=== PATIENT | male | born 1980 | race African-American/Black ===

== ENCOUNTER 2018-11-14 08:51 | Emergency (ER) | payer BC ==
[2018-11-14] MEDS ORDERED: Ondansetron PF 4 MG/2 ML Vial ONE (09:20)
[2018-11-14 09:27] LABS: Bilirubin Negative (Negative); Blood, Urine Small (Negative); Clarity Clear (Clear); Glucose, Urine (Dipstick) 500 mg/dL (Negative); Leukocyte Negative (Negative); Nitrite Negative (Negative); Protein, Urine (Dipstick) 100 mg/dL (Neg-Trace); Urobilinogen 0.2 mg/dL (0.2-1.0)
--- NOTE | 2018-11-14 09:29 | RAD ---
CHEST PA AND LATERAL: History: 38-year-old male with history of cough. FINDINGS: The heart size is normal. The lungs are clear. No pneumonia, edema, or pleural effusion. IMPRESSION: No acute intrathoracic disease. No evidence for pneumonia. POS: [facility]
[2018-11-14 09:37] LABS: Bacteria/HPF Rare-Few HPF (None Seen); Hyaline Casts/LPF NONE SEEN LPF (0-3 Hyaline); Squamous Epithelial 0-3 HPF (0-3)
[2018-11-14 09:38] LABS: Transitional Epithelial 0-3 HPF (0-3)
[2018-11-14 09:45] LABS: #Basophils 0.1 thou/uL (0.0-0.2); #Eosinphils 0.1 thou/uL (0.0-0.7); #Lymphocytes 1.4 thou/uL (1.20-3.40); #Monocytes 0.4 thou/uL (0.11-0.59); #Neutrophils 5.7 thou/uL (1.40-6.50); %Eosinophils 1.7 % (0.0-10.0); %Lymphocytes 17.9 % (21.0-51.0); %Neutrophils 74.4 % (42.0-75.0); Hemoglobin 12.5 g/dL (14.0-18.0); Mean Corpuscular Hemoglobin 26.9 pg (27.0-31.0); Mean Corpuscular Volume 81.5 fL (78.0-98.0); Platelet Count 232 thou/uL (130-400); RBC Distribution Width 11.9 % (11.5-14.5); Red Blood Cell (RBC) Count 4.66 mill/uL (4.70-6.10); White Blood Cell (WBC) Count 7.6 thou/uL (4.8-10.8)
[2018-11-14 09:54] LABS: ALT (SGPT) 15 U/L (8-55); AST (SGOT) 17 U/L (5-34); Albumin 3.1 g/dL (3.5-5.0); Alkaline Phosphatase 147 U/L (40-150); Anion Gap 15 mmol/L (10-20); BUN (Urea Nitrogen) 7 mg/dL (8.9-20.6); Bilirubin, Total 0.3 mg/dL (0.2-1.2); Calc. Creatinine Clearance 0 mL/min (70-130); Calcium 8.9 mg/dL (7.8-10.44); Carbon Dioxide 28 mmol/L (22-29); Chloride 95 mmol/L (98-107); Estimated GFR-MDRD 81; Globulin 5.1 g/dL (2.4-3.5); Lipase 28 U/L (8-78); Potassium 3.9 mmol/L (3.5-5.1); Protein, Total 8.2 g/dL (6.0-8.3); Sodium 134 mmol/L (136-145)
[2018-11-14 09:55] LABS: Glucose 567 mg/dL (70-105)
[2018-11-14] MEDS ORDERED: Insulin Regular 300 UNITS/3 ML VIAL ONE (09:59)
== END 2018-11-14 12:10 | disposition home or self-care (01) ==
LOC: SCSER 08:51
DX: E11.65 Type 2 diabetes mellitus with hyperglycemia (principal); R05 Cough; I10 Essential (primary) hypertension; E66.9 Obesity, unspecified; Z79.4 Long term (current) use of insulin; E78.5 Hyperlipidemia, unspecified; Z87.891 Personal history of nicotine dependence; Z79.899 Other long term (current) drug therapy
CPT/HCPCS: 36416; 71046; 80053; 81003; 81015; 82010; 83605; 83690; 85025; 87086; 96361; 96374; 96375; J1815; J2405

== ENCOUNTER 2020-03-31 12:07 | Outpatient (CLI) | payer BC ==
--- NOTE | 2020-03-31 15:17 | RAD ---
CHEST 2 VIEWS: HISTORY: Pre-dialysis workup. COMPARISON: Radiograph of 09/12/2019. FINDINGS: Mild increased interstitial markings throughout the lungs suggestive of pulmonary edema. Heart size is enlarged. No pneumothorax. No significant effusion. IMPRESSION: Moderate volume overload. POS: [facility]
--- NOTE | 2020-03-31 15:17 | ULT ---
PREDIALYSIS ACCESS DUPLEX ULTRASOUND EXAMINATION: 03/31/20 INDICATION: Dialysis access planning. FINDINGS: RIGHT UPPER EXTREMITY BRACHIAL ARTERY: 4.8 mm RADIAL ARTERY: 2.2 mm ULNAR ARTERY: 2.4 mm CEPHALIC VEIN Proximal Arm: 3.6 mm Mid Arm: 2.5 mm Distal Arm: 3.3 mm Antecubital Fossa: 3.2 mm Proximal Forearm: 2.8 mm Mid Forearm: 3.7 mm Distal Forearm: 2.8 mm BASILIC VEIN Proximal Arm: 4.5 mm Mid Arm: 3.9 mm Distal Arm: 4.7 mm Antecubital Fossa: 4.8 mm Proximal Forearm: 1.8 mm Mid Forearm: 2.0 mm Distal Forearm: 1.9 mm LEFT UPPER EXTREMITY BRACHIAL ARTERY: 5.4 mm RADIAL ARTERY: 2.5 mm ULNAR ARTERY: 2.7 mm CEPHALIC VEIN Proximal Arm: 2.0 mm Mid Arm: 2.1 mm Distal Arm: 2.0 mm Antecubital Fossa: Only partial compression seen involving the left cephalic vein in the region of t he antecubital fossa suspicious for partial occlusion. Proximal Forearm: 4.1 mm Mid Forearm: 2.0 mm Distal Forearm: 2.6 mm BASILIC VEIN Proximal Arm: 6.2 mm Mid Arm: 5.0 mm Distal Arm: 4.5 mm Antecubital Fossa: 4.0 mm Proximal Forearm: 1.1 mm Mid Forearm: 1.1 mm Distal Forearm: 1.5 mm IMPRESSION: 1. Partial compression suspicious for a partial superficial venous thrombus involving the left c ephalic vein at the antecubital fossa. The remaining venous segments appear patent. 2. Dialysis duplex examination measurements as above. POS: [facility]
== END 2020-03-31 12:08 | disposition home or self-care (01) ==
LOC: SCSULT 12:07
PROVIDERS: ATTEND Internal Medicine Nephrology
DX: I12.0 Hypertensive chronic kidney disease with stage 5 chronic kidney disease or end stage renal disease (principal); N18.5 Chronic kidney disease, stage 5; E87.70 Fluid overload, unspecified
CPT/HCPCS: 36415; 71046; 80053; 85025; 86706; 86803; 87340; 87517; 93970; G0365

== ENCOUNTER 2020-04-11 08:57 | Inpatient (IN) | payer BC, OTHER ==
[2020-04-11] MEDS ORDERED: Ondansetron PF 4 MG/2 ML Vial ONE (09:37)
--- NOTE | 2020-04-11 09:47 | RAD ---
EXAM: CHEST ONE VIEW HISTORY: Cough and dyspnea COMPARISON: 11/10/2019 FINDINGS: Cardiac silhouette remains in large. Pulmonary vasculature is within normal limits. The lungs are coty ar. Osseous structures have a normal appearance. No interval change from prior study IMPRESSION: 1. No acute cardiopulmonary process. 2. No pulmonary opacities are visualized. However, chest radiographs exhibit low sensitivity for subt le groundglass opacities that can be seen in viral infections. 3. Cardiomegaly.
[2020-04-11 09:50] LABS: #Eosinphils 0.1 thou/uL (0.0-0.7); #Lymphocytes 0.8 thou/uL (1.20-3.40); #Monocytes 0.5 thou/uL (0.11-0.59); #Neutrophils 6.7 thou/uL (1.40-6.50); %Basophils 0.6 % (0.0-1.0); %Eosinophils 1.2 % (0.0-10.0); %Lymphocytes 9.6 % (21.0-51.0); %Neutrophils 82.6 % (42.0-75.0); Mean Corpuscular HGB CONC 32.2 g/dL (32.0-36.0); Mean Corpuscular Hemoglobin 30.3 pg (27.0-31.0); Mean Corpuscular Volume 93.8 fL (78.0-98.0); Platelet Count 154 thou/uL (130-400); RBC Distribution Width 15.2 % (11.5-14.5); Red Blood Cell (RBC) Count 2.98 mill/uL (4.70-6.10); White Blood Cell (WBC) Count 8.1 thou/uL (4.8-10.8)
[2020-04-11 12:11] LABS: ALT (SGPT) 14 U/L (8-55); AST (SGOT) 35 U/L (5-34); Albumin 3.2 g/dL (3.5-5.0); Alkaline Phosphatase 114 U/L (40-110); Anion Gap 25 mmol/L (10-20); BUN (Urea Nitrogen) 66 mg/dL (8.9-20.6); Bilirubin, Total 0.4 mg/dL (0.2-1.2); Calc. Creatinine Clearance 0 mL/min (70-130); Calcium 6.3 mg/dL (7.8-10.44); Carbon Dioxide 14 mmol/L (22-29); Chloride 105 mmol/L (98-107); Estimated GFR-MDRD 11; Globulin 5.3 g/dL (2.4-3.5); Glucose 75 mg/dL (70-105); Potassium 4.8 mmol/L (3.5-5.1); Protein, Total 8.5 g/dL (6.0-8.3); Sodium 139 mmol/L (136-145)
[2020-04-11] MEDS ORDERED: cloNIDine 0.1 MG TAB ONE (13:51)
[2020-04-11] MEDS ORDERED: Promethazine HCl 25 MG/ML VIAL ONE (13:51)
--- NOTE | 2020-04-11 15:25 | PDOC.FPRHP ---
- History of Present Illness Chief Complaint: nausea/vomiting History of Present Illness: Mr. Vogel is a 40 yo m w a pmhx sig for htn, IDDM, and ESRD He has had n/v for two days, emesis tntc, reports clear/bile. denies hematemesis , abdominal pain, fever, or known exposures. He has been seeing Dr. Alan in the outpt setting for CKD, moving towards beginning dialysis. He is unsure what the cause of his CKD is and reports his DM and HTN has been well controlled. He reports he has been dx with HF in the past but is unsure what type/ or EF. recent echo at [facility]. sleeps elevated 2/2 to sob and cough reports LE swelling is at baseline. before 2 days ago he was doing well and had no concerns. ED Course: CBC, CMP, Mg, COVID swab, trop, cxr, ekg Clonidine, promethazine, 1L, zofran - Allergies/Adverse Reactions Allergies Allergy/AdvReac Type Severity Reaction Status Date / Time sulfamethoxazole Allergy Verified 04/11/20 19:35 [From Bactrim] trimethoprim [From Bactrim] Allergy Verified 04/11/20 19:35 - Home Medications Medication Instructions Recorded Confirmed Type Carvedilol 25 mg PO BID 06/05/17 04/11/20 History Insulin Glargine,Hum.Rec.Anlog 75 unit SC DAILY-AC 06/05/17 04/11/20 History [Lantus Solostar] Furosemide 80 mg PO BID 04/11/20 04/11/20 History HumaLOG [HumaLOG Vial] 10 units SC TID 04/11/20 04/11/20 History Metolazone [Zaroxolyn] 5 mg PO DAILY 04/11/20 04/11/20 History Pantoprazole [Protonix] 40 mg PO DAILY 04/11/20 04/11/20 History cloNIDine [Catapres] 0.1 mg PO TID 04/11/20 04/11/20 History hydrALAZINE HCl [Hydralazine HCl] 50 mg PO TID 04/11/20 04/11/20 History Comments: above is from previous hosp. pt unsure of current meds/doses, does not have them with him - History PMHx: IDDM, HTN, ESRD, CHF PSHx: ORIF L wrist FHx:DMII Social:no TAD - Review of Systems General: denies: fever/chills, weight/appetite/sleep changes Eyes: denies: vision changes ENT: denies: nasal congestion Respiratory: reports: cough, shortness of breath. denies: congestion, exercise intolerance Cardiovascular: reports: edema, paroxysmal nocturnal dyspnea. denies: chest pain, palpitation Gastrointestinal: reports: nausea, vomiting. denies: diarrhea, constipation, abdominal pain Genitourinary: denies: incontinence, dysuria Skin: denies: rashes, lesions Musculoskeletal: denies: pain, tenderness Neurological: denies: numbness, syncope - Vital signs 175/112, Pulse: 89, Resp: 20, Temp: 98.7 (Oral), O2 sat: 99% on (Room Air) - Physical Exam Constitutional: NAD, awake, alert and oriented HEENT: normocephalic and atraumatic, grossly normal vision, grossly normal hearing, MMM Neck: trachea midline Chest: no-tender to palpation Heart: RRR, normal S1/S2 Lungs: CTAB, no respiratory distress, good air movement Abdomen: soft, non-tender Musculoskeletal: normal structure, normal tone Neurological: no focal deficit, CN II-XII intact Skin: no rash/lesions, good turgor Heme/Lymphatic: no unusual bruising or bleeding Psychiatric: normal mood and affect FMR H&P: Results - Labs Result Diagrams: 04/11/20 09:31 04/11/20 10:33 Lab results: WBC 8.1 thou/uL (4.8-10.8) 04/11/20 09:31 Hgb 9.0 g/dL (14.0-18.0) L 04/11/20 09:31 Hct 28.0 % (42.0-52.0) L 04/11/20 09:31 MCV 93.8 fL (78.0-98.0) 04/11/20 09:31 Plt Count 154 thou/uL (130-400) 04/11/20 09:31 Neutrophils % 82.6 % (42.0-75.0) H 04/11/20 09:31 Sodium 139 mmol/L (136-145) 04/11/20 10:33 Potassium 4.8 mmol/L (3.5-5.1) 04/11/20 10:33 Chloride 105 mmol/L (98-107) 04/11/20 10:33 Carbon Dioxide 14 mmol/L (22-29) L 04/11/20 10:33 BUN 66 mg/dL (8.9-20.6) H 04/11/20 10:33 Creatinine 6.83 mg/dL (0.7-1.3) H 04/11/20 10:33 Glucose 75 mg/dL (70-105) 04/11/20 10:33 Calcium 6.3 mg/dL (7.8-10.44) L 04/11/20 10:33 Total Bilirubin 0.4 mg/dL (0.2-1.2) 04/11/20 10:33 AST 35 U/L (5-34) H 04/11/20 10:33 ALT 14 U/L (8-55) 04/11/20 10:33 Alkaline Phosphatase 114 U/L (40-110) H 04/11/20 10:33 Serum Total Protein 8.5 g/dL (6.0-8.3) H 04/11/20 10:33 Albumin 3.2 g/dL (3.5-5.0) L 04/11/20 10:33 FMR H&P: A/P - Problem List (1) HTN (hypertension) Current Visit: Yes Status: Acute Code(s): I10 - ESSENTIAL (PRIMARY) HYPERTENSION (2) IDDM (insulin dependent diabetes mellitus) Current Visit: Yes Status: Acute Code(s): [id number] - (3) ESRD (end stage renal disease) Current Visit: Yes Status: Acute Code(s): N18.6 - END STAGE RENAL DISEASE (4) Hypertensive urgency Current Visit: Yes Status: Acute Code(s): I16.0 - HYPERTENSIVE URGENCY (5) Hypomagnesemia Current Visit: Yes Status: Acute Code(s): E83.42 - HYPOMAGNESEMIA (6) Anemia in chronic kidney disease Current Visit: Yes Status: Acute Code(s): N18.9 - CHRONIC KIDNEY DISEASE, UNSPECIFIED; D63.1 - ANEMIA IN CHRONIC KIDNEY DISEASE (7) Suspected COVID-19 virus infection Current Visit: Yes Status: Acute Code(s): Z20.828 - CONTACT W AND EXPOSURE TO [facility] VIRAL COMMUNICABLE DISEASES - Plan ESRD -est. with Dr. Clinton, documented worsening kidney fxn. acute worsening today - Dr. Morgan contacted from ED for access - Dr. Lee consulted for ED for dialysis - avoid nephrotoxic meds, begin dialysis when available HTN urgency - continue home meds - hydralazine prn viral illness - zofran prn - covid pending Hypomagnesemia - replace and recheck anemia of chronic disease - stable, improved from prior - monitor IDDM - SSI, QACHS accuchecks - continue home cHTN - continue home meds CHF - unsure of type, seems to be at baseline - request echo from [facility] pcp: Mert ([facility] call) ppx: heparin code: Full dispo: admit to tele for monitoring, dialysis FMR H&P: Upper Level - Plan Date/Time: 04/11/20 1523 I, [], have evaluated this patient and agree with findings/plan as outlined by sports intern resident. Pertinent changes/additions are listed here. Addendum - Attending - Attending Attestation Date/Time: 04/11/20 9936 I personally evaluated the patient and discussed the management with Dr. Sutherland. I agree with the History, Examination, Assessment and Plan documented above with any addition or exceptions noted below. Patient in dialysis and COVID-19 negative when I saw him. No symptoms. CKD5 -begin dialysis Anemia -mgmt per renal Elevated BNP with symptoms c/w CHF -await echo results from [facility]
[2020-04-11] MEDS ORDERED: Acetaminophen 325 MG TAB PO PRN (15:43)
[2020-04-11] MEDS ORDERED: Acetaminophen 650 MG Suppository PR PRN (15:43)
[2020-04-11] MEDS ORDERED: Dextrose 5% in Water 1,000 ML IV PRN (15:43)
[2020-04-11] MEDS ORDERED: Dextrose 50% Abboject 50 ML SYRINGE SLOW IVP PRN (15:43)
[2020-04-11] MEDS ORDERED: Ondansetron PF 4 MG/2 ML Vial IVP PRN (15:43)
[2020-04-11] MEDS ORDERED: HumaLOG 300 UNITS/3 ML VIAL SC PRN ×2 (15:47)
[2020-04-11] MEDS ORDERED: hydrALAZINE 20 MG/ML VIAL SLOW IVP PRN (16:57)
[2020-04-11 18:16] LABS: SARS-CoV-2 MS2 Positive; SARS-CoV-2 N Gene Negative; SARS-CoV-2 S Gene Negative; SARS-CoV-2 orf1ab Negative
[2020-04-11 21:48] LABS: HBSAB Concentration 1.62 mIU/mL; HBSAg Index 0.24 S/CO (0-0.99); Hep B Core Total Ab Non-Reactive (NonReactive); Hep B Core Total Index 0.24 S/CO (0-0.79); Hep B Surf AB Non-Reactive (NonReactive); Hep B Surf Ag Non-Reactive S/CO (NonReactive); Hep C IgG Ab Non-Reactive (NonReactive); Hep C Index 0.17 S/CO (0-0.79)
[2020-04-11] MEDS: Carvedilol 25 MG TAB PO SCH (23:05)
[2020-04-11] MEDS: cloNIDine 0.1 MG TAB PO SCH (23:05)
[2020-04-11] MEDS: hydrALAZINE 25 MG TAB PO SCH (23:05)
[2020-04-11] MEDS: Heparin 5,000 UNITS/ML VIAL SC SCH (23:05)
[2020-04-11] MEDS: HumaLOG 300 UNITS/3 ML VIAL SC SCH (23:06)
--- NOTE | 2020-04-11 23:07 | OP ---
DATE OF PROCEDURE: 04/11/2020 PREOPERATIVE DIAGNOSIS: Acute renal failure. POSTOPERATIVE DIAGNOSIS: Acute renal failure. PROCEDURE PERFORMED: Placement of right femoral vein Trialysis catheter for hemodialysis. INDICATIONS FOR PROCEDURE: A 40-year-old man presented with acute renal failure. I was asked to place a temporary dialysis access for urgent hemodialysis. DESCRIPTION OF PROCEDURE: Informed consent was obtained from the patient, and he was placed in supine position. The right groin sterilely prepped and draped in usual fashion. The right femoral artery was palpated at the groin. The skin medial to this was anesthetized with 1% lidocaine. The right femoral vein was cannulated with an 18-gauge introducer needle, returning dark venous blood. Guidewire was passed through the needle and advanced into the right femoral vein without resistance. Needle was withdrawn over the guidewire. Stab incision was made adjacent to the guidewire using an 11 scalpel. Dilator was passed over the guidewire, dilating the subcutaneous tissues. Dilator was removed. Triple-lumen Trialysis catheter was advanced over the guidewire and placed in the right femoral vein without resistance down to the hub. Guidewire was removed. Dark venous blood was aspirated from all 3 ports, which were individually flushed first with sterile saline followed by heparin. Catheter was secured to the right groin using 3-0 nylon suture at two points. Sterile dressings were applied. The patient tolerated this procedure without any apparent complication and remains hemodynamically stable following completion of procedure. Job ID: [id number]
[2020-04-11] MEDS: Ondansetron ODT 4 MG TAB PO PRN (23:09)
--- NOTE | 2020-04-12 03:09 | CON ---
DATE OF CONSULTATION: 04/11/2020 CONSULTING PHYSICIAN: REASON FOR CONSULTATION: Chronic kidney disease. REASON FOR ADMISSION: Nausea and vomiting. HISTORY OF PRESENT ILLNESS: A 40-year-old male with history of diabetes, hypertension, chronic kidney disease, came to the hospital with nausea, vomiting, and was found to have elevated creatinine. Dr. Alan follows him [facility] and was thought at that time to initiate dialysis and he started on dialysis. Surgery was consulted. He had a temporary dialysis catheter placed and will be getting dialysis today. The patient is having hiccups, nausea, vomiting. No chest pain or palpitation. PAST MEDICAL HISTORY: Positive for diabetes, hypertension, CKD, CHF. PAST SURGICAL HISTORY: ORIF, left wrist. HOME MEDICATIONS: Reviewed. ALLERGIES: SULFA. SOCIAL HISTORY: No smoking, alcohol, or drugs. FAMILY HISTORY: Diabetes. REVIEW OF SYSTEMS: CONSTITUTIONAL: Negative for weight loss or gain, ability to conduct usual activities. SKIN: Negative for rash, itching. EYES: Negative for double vision, pain. ENT/MOUTH: Negative for nose bleeding, neck stiffness, pain, tenderness. CARDIOVASCULAR: Negative for palpitations, dyspnea on exertion, orthopnea. RESPIRATORY: Negative for shortness of breath, wheezing, cough, hemoptysis, fever or night sweats. GASTROINTESTINAL: Negative for poor appetite, abdominal pain, heartburn, nausea, vomiting, constipation, or diarrhea. GENITOURINARY: Negative for urgency, frequency, dysuria, nocturia. MUSCULOSKELETAL: Negative for pain, swelling. NEUROLOGIC/PSYCHIATRIC: Negative for anxiety, depression. ALLERGY/IMMUNOLOGIC: Negative for skin rash, bleeding tendency. PHYSICAL EXAMINATION: GENERAL: This is a well-built male, in no apparent distress. VITAL SIGNS: Temperature 98.7, pulse 89, respiratory rate 20, blood pressure 170/112. HEENT: Atraumatic, normocephalic. Oral mucosa moist. NECK: Supple. CV: S1 and S2 heard. RESPIRATORY: Clear. GI: Abdomen soft. MUSCULOSKELETAL: 1+ edema. DERMATOLOGIC: No skin rash. NEUROLOGICAL: Alert and awake. PSYCHIATRIC: Mood and affect are normal. LABORATORY DATA: Hemoglobin is 9.0, potassium 4.8, BUN is 66, creatinine 6.8, albumin is 3.2. ASSESSMENT AND PLAN: 1. End-stage renal disease. Plan is to start on hemodialysis. 2. Edema. Remove fluid. 3. Hypertension. 4. Anemia of chronic disease. 5. Hypoalbuminemia. 6. Elevated BNP. 7. Fluid overload. Plan is to start on dialysis and appreciate help from Surgery. We will continue to follow. Thank you for the consult. Job ID: [id number]
[2020-04-12 05:25] LABS: ALT (SGPT) 9 U/L (8-55); AST (SGOT) 20 U/L (5-34); Albumin 3.1 g/dL (3.5-5.0); Alkaline Phosphatase 106 U/L (40-110); Anion Gap 18 mmol/L (10-20); BUN (Urea Nitrogen) 52 mg/dL (8.9-20.6); Bilirubin, Total 0.3 mg/dL (0.2-1.2); Calc. Creatinine Clearance 28 mL/min (70-130); Calcium 6.5 mg/dL (7.8-10.44); Carbon Dioxide 21 mmol/L (22-29); Chloride 105 mmol/L (98-107); Estimated GFR-MDRD 13; Globulin 4.3 g/dL (2.4-3.5); Glucose 82 mg/dL (70-105); Magnesium 1.6 mg/dL (1.6-2.6); Potassium 3.6 mmol/L (3.5-5.1); Protein, Total 7.4 g/dL (6.0-8.3); Sodium 140 mmol/L (136-145)
[2020-04-12 05:36] LABS: Band 2 % (5-11); Hemoglobin 8.6 g/dL (14.0-18.0); Lymphocytes 13 % (21-51); MDiff Complete? YES; Mean Corpuscular HGB CONC 32.7 g/dL (32.0-36.0); Mean Corpuscular Hemoglobin 30.6 pg (27.0-31.0); Mean Corpuscular Volume 93.7 fL (78.0-98.0); Mean Platelet Volume 8.6 fL (7.4-10.4); Monocytes 9 % (0-10); Neutrophil 76 % (42-75); Platelet Count 144 thou/uL (130-400); RBC Distribution Width 15.2 % (11.5-14.5); Red Blood Cell (RBC) Count 2.81 mill/uL (4.70-6.10); White Blood Cell (WBC) Count 7.2 thou/uL (4.8-10.8)
--- NOTE | 2020-04-12 07:16 | PDOC.FM ---
- Subjective Subjective: pt sitting at the side of bed, feeling nauseated, denies abdominal pain or SOB - Objective Vital Signs & Weight: Vital Signs (12 hours) Temp Pulse Resp BP BP Pulse Ox 04/12/20 03:04 98.2 F 86 12 175/92 H 97 04/11/20 23:56 86 191/98 H 04/11/20 23:05 89 191/105 H Weight Weight 117.753 kg Result Diagrams: 04/12/20 04:50 04/12/20 04:50 Phys Exam - Physical Examination Constitutional: NAD HEENT: moist MMs Neck: no JVD diminished lung sounds in bases Cardiovascular: RRR, no significant murmur Gastrointestinal: no distention Musculoskeletal: edema present Neurological: moves all 4 limbs Psychiatric: normal affect Skin: no rash Dx/Plan (1) HTN (hypertension) Code(s): I10 - ESSENTIAL (PRIMARY) HYPERTENSION Status: Acute (2) IDDM (insulin dependent diabetes mellitus) Code(s): [id number] - Status: Acute (3) ESRD (end stage renal disease) Code(s): N18.6 - END STAGE RENAL DISEASE Status: Acute (4) Hypertensive urgency Code(s): I16.0 - HYPERTENSIVE URGENCY Status: Acute (5) Hypomagnesemia Code(s): E83.42 - HYPOMAGNESEMIA Status: Acute (6) Anemia in chronic kidney disease Code(s): N18.9 - CHRONIC KIDNEY DISEASE, UNSPECIFIED; D63.1 - ANEMIA IN CHRONIC KIDNEY DISEASE Status: Acute (7) Suspected COVID-19 virus infection Code(s): Z20.828 - CONTACT W AND EXPOSURE TO OTH VIRAL COMMUNICABLE DISEASES Status: Acute - Plan Plan: ESRD -est. with Dr. Clinton, documented worsening kidney fxn. - Dr. Morgan contacted from ED for access - Dr. Lee consulted for ED for dialysis - dialysis per nephro HTN urgency - continue home meds - hydralazine prn viral illness - zofran prn - covid neg Hypomagnesemia - resolved, monitor anemia of chronic disease - stable, improved from prior - monitor IDDM - SSI, QACHS accuchecks - continue home cHTN - continue home meds CHF - unsure of type, seems to be at baseline - request echo from [employer] [facility] - continue home meds pcp: Mert ([facility] call) ppx: heparin code: Full dispo: dc planning for outpt dialysis Addendum - Attending - Attending Attestation Date/Time: 04/12/20 4099 I personally evaluated the patient and discussed the management with Dr. Sutherland. I agree with the History, Examination, Assessment and Plan documented above with any addition or exceptions noted below. Patient overall stable. Getting HD again today. Needs continued BP control and set up for outpatient HD. Nephro on board.
[2020-04-12] MEDS ORDERED: Non-Formulary Item 1 EACH (Insulin Glargine,Hum.Rec.Anlog [Lantus Solostar] 75 UNIT) SC SCH (07:30)
[2020-04-12] MEDS: Ondansetron ODT 4 MG TAB PO PRN ×2 (08:07→14:37)
[2020-04-12] MEDS: Heparin 5,000 UNITS/ML VIAL SC SCH ×3 (08:11→20:43)
[2020-04-12] MEDS: hydrALAZINE 25 MG TAB PO SCH ×3 (08:12→20:42)
[2020-04-12] MEDS: cloNIDine 0.1 MG TAB PO SCH ×3 (08:12→20:43)
[2020-04-12] MEDS: Carvedilol 25 MG TAB PO SCH ×2 (08:12→20:43)
[2020-04-12] MEDS: Insulin Glargine 75 UNITS in Pre-Filled Syringe 1 EACH SC SCH (08:13)
[2020-04-12] MEDS: HumaLOG 300 UNITS/3 ML VIAL SC SCH ×3 (08:14→20:43)
[2020-04-12] MEDS ORDERED: Metolazone 5 MG TAB PO SCH (09:00)
[2020-04-12] MEDS ORDERED: Furosemide 80 MG TAB PO SCH (09:00)
--- NOTE | 2020-04-12 13:59 | PRG ---
DATE OF SERVICE: 04/12/2020 SUBJECTIVE: Patient was seen and examined at bedside and overnight events noted. Patient denies any shortness of breath or chest pain or palpitation. No history of nausea or vomiting or diarrhea or fever or chills or cramps. OBJECTIVE: GENERAL: This is a well-built male, in no apparent distress. VITAL SIGNS: Temperature 98.3. Heart Rate 85. Respiratory rate 16. Blood pressure 180/102. HEENT: Atraumatic, normocephalic. Oral mucosa is moist. NECK: Supple. CARDIOVASCULAR: S1, S2 heard. Rate and rhythm regular. RESPIRATORY: Clear to auscultation. GASTROINTESTINAL: Abdomen is soft. MUSCULOSKELETAL: No tenderness. No edema. DERMATOLOGIC: No skin rash. NEUROLOGIC: Alert and awake and oriented x3. No focal neurologic deficits. Moving all the extremities. PSYCHIATRIC: Mood and affect normal. LABORATORY DATA: Potassium 3.6, BUN is 52, and creatinine is 5.8. ASSESSMENT AND PLAN: 1. End-stage renal disease. Continue dialysis as tolerated. Follow up with case specialist for outpatient placement. 2. Edema. 3. Hypertension. 4. Elevated BNP. 5. Fluid overload. Plan to continue on dialysis as tolerated. Job ID: [id number]
--- NOTE | 2020-04-12 15:24 | RAD ---
Radiograph abdomen one view: DATE: 04/12/2020 HISTORY: 40-year-old male with abdominal pain and diarrhea FINDINGS: Double lumen dialysis catheter ascends from right groin to distal tip overlapping the right side of L 3 vertebra. Possibility of bowel gas. At least a small amount of colonic stool. No gastric distention. IMPRESSION: 1. Right-sided hemodialysis catheter, distal tip probably at IVC. 2. Paucity of bowel gas.
[2020-04-12] MEDS: Tuberculin PPD 0.1 ML VIAL I-DERMAL SCH (18:16)
[2020-04-13 05:30] LABS: ALT (SGPT) 7 U/L (8-55); AST (SGOT) 16 U/L (5-34); Albumin 2.8 g/dL (3.5-5.0); Alkaline Phosphatase 97 U/L (40-110); Anion Gap 18 mmol/L (10-20); BUN (Urea Nitrogen) 44 mg/dL (8.9-20.6); Bilirubin, Total 0.2 mg/dL (0.2-1.2); Calc. Creatinine Clearance 28 mL/min (70-130); Calcium 6.4 mg/dL (7.8-10.44); Carbon Dioxide 20 mmol/L (22-29); Chloride 105 mmol/L (98-107); Estimated GFR-MDRD 13; Globulin 3.9 g/dL (2.4-3.5); Glucose 91 mg/dL (70-105); Potassium 3.4 mmol/L (3.5-5.1); Protein, Total 6.7 g/dL (6.0-8.3); Sodium 140 mmol/L (136-145)
[2020-04-13 05:33] LABS: Band 2 % (5-11); Eosinophils 3 % (0-10); Lymphocytes 6 % (21-51); MDiff Complete? YES; Mean Corpuscular HGB CONC 32.4 g/dL (32.0-36.0); Mean Corpuscular Hemoglobin 30.5 pg (27.0-31.0); Mean Corpuscular Volume 94.4 fL (78.0-98.0); Mean Platelet Volume 8.9 fL (7.4-10.4); Monocytes 10 % (0-10); Neutrophil 79 % (42-75); Platelet Count 124 thou/uL (130-400); Red Blood Cell (RBC) Count 2.61 mill/uL (4.70-6.10); White Blood Cell (WBC) Count 6.5 thou/uL (4.8-10.8)
--- NOTE | 2020-04-13 07:13 | PDOC.FM ---
- Subjective Subjective: pt resting in bed, denies continued diarrhea or abdominal pain - Objective Vital Signs & Weight: Vital Signs (12 hours) Temp Pulse Resp BP BP BP BP 04/13/20 03:20 98.6 F 87 18 175/88 H 04/12/20 23:23 98.3 F 87 16 180/96 H 04/12/20 20:43 166/82 H 04/12/20 20:42 86 166/82 H 04/12/20 19:25 97.8 F 86 16 166/82 H Pulse Ox 04/13/20 03:20 97 04/12/20 23:23 98 04/12/20 20:43 04/12/20 20:42 04/12/20 19:25 99 Weight Admit Weight 117.753 kg Weight 115.4 kg I&O: 04/12/20 04/13/20 04/14/20 06:59 06:59 06:59 Intake Total 200 Output Total 600 Balance -400 Result Diagrams: 04/13/20 04:53 04/13/20 04:53 Phys Exam - Physical Examination Constitutional: NAD HEENT: moist MMs Neck: no JVD Gastrointestinal: soft, non-tender, no distention Musculoskeletal: no edema Neurological: moves all 4 limbs Psychiatric: normal affect Skin: no rash Dx/Plan (1) HTN (hypertension) Code(s): I10 - ESSENTIAL (PRIMARY) HYPERTENSION Status: Acute (2) IDDM (insulin dependent diabetes mellitus) Code(s): [id number] - Status: Acute (3) ESRD (end stage renal disease) Code(s): N18.6 - END STAGE RENAL DISEASE Status: Acute (4) Hypertensive urgency Code(s): I16.0 - HYPERTENSIVE URGENCY Status: Acute (5) Hypomagnesemia Code(s): E83.42 - HYPOMAGNESEMIA Status: Acute (6) Anemia in chronic kidney disease Code(s): N18.9 - CHRONIC KIDNEY DISEASE, UNSPECIFIED; D63.1 - ANEMIA IN CHRONIC KIDNEY DISEASE Status: Acute (7) Suspected COVID-19 virus infection Code(s): Z20.828 - CONTACT W AND EXPOSURE TO OTH VIRAL COMMUNICABLE DISEASES Status: Acute - Plan Plan: ESRD -est. with Dr. Clinton, documented worsening kidney fxn. - Dr. Morgan contacted from ED for access - Dr. Lee consulted for ED for dialysis - dialysis per nephro HTN urgency - continue home meds - add procardia - hydralazine prn viral illness - zofran prn - covid neg Hypomagnesemia - resolved, monitor anemia of chronic disease - stable, improved from prior - monitor IDDM - SSI, QACHS accuchecks - continue home insulin cHTN - continue home meds CHF - unsure of type, seems to be at baseline - request echo from [facility] - continue home meds pcp: Mert (&[facility] call) ppx: heparin code: Full dispo: dc planning for outpt dialysis Addendum - Attending - Attending Attestation Date/Time: 04/13/20 6092 I personally evaluated the patient and discussed the management with Dr. Sutherland I agree with the History, Examination, Assessment and Plan documented above with any addition or exceptions noted below. Patient continues to get HD. Continue to work on setting that up outpatient. BP control. Nephro on board.
[2020-04-13] MEDS ORDERED: NIFEdipine XL 30 MG TAB PO SCH (09:00)
[2020-04-13] MEDS: Carvedilol 25 MG TAB PO SCH ×2 (09:29→20:27)
[2020-04-13] MEDS: cloNIDine 0.1 MG TAB PO SCH ×3 (09:29→20:27)
[2020-04-13] MEDS: hydrALAZINE 25 MG TAB PO SCH ×3 (09:29→20:26)
[2020-04-13] MEDS: HumaLOG 300 UNITS/3 ML VIAL SC SCH ×3 (09:30→20:27)
[2020-04-13] MEDS: Insulin Glargine 75 UNITS in Pre-Filled Syringe 1 EACH SC SCH (09:30)
[2020-04-13] MEDS: Heparin 5,000 UNITS/ML VIAL SC SCH ×3 (09:30→20:26)
--- NOTE | 2020-04-13 10:54 | PRG ---
DATE OF SERVICE: 04/13/2020 SUBJECTIVE: Patient was seen and examined at bedside and overnight events noted. Patient denies any shortness of breath or chest pain or palpitation. No history of nausea or vomiting or diarrhea or fever or chills or cramps. OBJECTIVE: GENERAL: This is a well-built male, in no apparent distress. VITAL SIGNS: Temperature 98.6. Heart rate 89. Respiratory rate 18. Blood pressure . HEENT: Atraumatic, normocephalic. Oral mucosa is moist. NECK: Supple. CARDIOVASCULAR: S1, S2 heard. Rate and rhythm regular. RESPIRATORY: Clear to auscultation. GASTROINTESTINAL: Abdomen is soft. MUSCULOSKELETAL: No tenderness. No edema. DERMATOLOGIC: No skin rash. NEUROLOGIC: Alert and awake and oriented x3. No focal neurologic deficits. Moving all the extremities. PSYCHIATRIC: Mood and affect normal. LABORATORY DATA: Potassium 3.4, BUN is 44, and creatinine is . ASSESSMENT AND PLAN: 1. End-stage renal disease. Continue dialysis. 2. Edema, remove fluid. 3. Hypertension. 4. Fluid overload. Plan to continue dialysis as tolerated. Job ID: [id number]
[2020-04-13] MEDS ORDERED: EPOETIN ALFA-EPBX (ESRD) 10,000 UNIT/ML VIAL IVP SCH (12:00)
[2020-04-13] MEDS ORDERED: Epoetin (ESRD) 20,000 UNITS/ML IVP SCH (13:20)
[2020-04-13] MEDS: Tuberculin PPD 0.1 ML VIAL I-DERMAL SCH (15:47)
[2020-04-14 05:33] LABS: ALT (SGPT) 7 U/L (8-55); AST (SGOT) 15 U/L (5-34); Albumin 2.8 g/dL (3.5-5.0); Alkaline Phosphatase 95 U/L (40-110); Anion Gap 18 mmol/L (10-20); BUN (Urea Nitrogen) 26 mg/dL (8.9-20.6); Bilirubin, Total 0.2 mg/dL (0.2-1.2); Calc. Creatinine Clearance 32 mL/min (70-130); Calcium 6.6 mg/dL (7.8-10.44); Carbon Dioxide 22 mmol/L (22-29); Chloride 103 mmol/L (98-107); Estimated GFR-MDRD 15; Globulin 3.8 g/dL (2.4-3.5); Glucose 117 mg/dL (70-105); Potassium 3.5 mmol/L (3.5-5.1); Protein, Total 6.6 g/dL (6.0-8.3); Sodium 139 mmol/L (136-145)
[2020-04-14 05:48] LABS: Hemoglobin 8.3 g/dL (14.0-18.0); Mean Corpuscular HGB CONC 32.2 g/dL (32.0-36.0); Mean Corpuscular Hemoglobin 30.6 pg (27.0-31.0); Mean Corpuscular Volume 94.9 fL (78.0-98.0); Mean Platelet Volume 8.7 fL (7.4-10.4); Platelet Count 132 thou/uL (130-400); RBC Distribution Width 15.8 % (11.5-14.5); Red Blood Cell (RBC) Count 2.72 mill/uL (4.70-6.10); White Blood Cell (WBC) Count 6.2 thou/uL (4.8-10.8)
[2020-04-14 06:19] LABS: Band 5 % (5-11); Lymphocytes 11 % (21-51); MDiff Complete? YES; Monocytes 7 % (0-10); Neutrophil 77 % (42-75)
--- NOTE | 2020-04-14 07:36 | PDOC.FM ---
- Subjective Subjective: pt sitting up at bedside, tolerating PO. reports nasal congestion - Objective Vital Signs & Weight: Vital Signs (12 hours) Temp Pulse Resp BP BP Pulse Ox 04/14/20 00:02 97.9 F 89 16 155/74 H 96 04/13/20 20:27 158/81 H 04/13/20 20:26 83 158/81 H 04/13/20 19:57 98.4 F 83 16 158/81 H 94 L Weight Admit Weight 117.753 kg Weight 112.2 kg I&O: 04/13/20 04/14/20 04/15/20 06:59 06:59 06:59 Intake Total 200 1110 Output Total 600 Balance -400 1110 Result Diagrams: 04/14/20 05:00 04/14/20 05:00 Phys Exam - Physical Examination Constitutional: NAD HEENT: moist MMs Neck: supple Gastrointestinal: no distention Musculoskeletal: edema present Neurological: moves all 4 limbs Psychiatric: normal affect Skin: no rash Dx/Plan (1) HTN (hypertension) Code(s): I10 - ESSENTIAL (PRIMARY) HYPERTENSION Status: Acute (2) IDDM (insulin dependent diabetes mellitus) Code(s): [id number] - Status: Acute (3) ESRD (end stage renal disease) Code(s): N18.6 - END STAGE RENAL DISEASE Status: Acute (4) Hypertensive urgency Code(s): I16.0 - HYPERTENSIVE URGENCY Status: Acute (5) Hypomagnesemia Code(s): E83.42 - HYPOMAGNESEMIA Status: Acute (6) Anemia in chronic kidney disease Code(s): N18.9 - CHRONIC KIDNEY DISEASE, UNSPECIFIED; D63.1 - ANEMIA IN CHRONIC KIDNEY DISEASE Status: Acute (7) Suspected COVID-19 virus infection Code(s): Z20.828 - CONTACT W AND EXPOSURE TO OTH VIRAL COMMUNICABLE DISEASES Status: Acute - Plan Plan: ESRD -est. with Dr. Clinton, documented worsening kidney fxn. - Dr. Morgan contacted from ED for access - Dr. Lee consulted for ED for dialysis - dialysis per nephro HTN urgency - continue home meds - increase procardia - hydralazine prn viral illness - zofran prn - covid neg Hypomagnesemia - resolved, monitor anemia of chronic disease - stable, improved from prior - monitor IDDM - SSI, QACHS accuchecks - continue home insulin cHTN - continue home meds CHF - unsure of type, seems to be at baseline - request echo from [facility] - continue home meds pcp: Mert (&[facility] call) ppx: heparin code: Full dispo: dc planning for outpt dialysis Addendum - Attending - Attending Attestation Date/Time: 04/14/20 1206 I personally evaluated the patient and discussed the management with Dr. Sutherland. I agree with the History, Examination, Assessment and Plan documented above with any addition or exceptions noted below. Patient improved. Escalate BP control, working on arranging all he needs for outpatient HD.
[2020-04-14] MEDS: Heparin 5,000 UNITS/ML VIAL SC SCH ×2 (08:27→20:13)
[2020-04-14] MEDS: Carvedilol 25 MG TAB PO SCH ×2 (08:27→20:14)
[2020-04-14] MEDS: hydrALAZINE 25 MG TAB PO SCH ×3 (08:27→20:13)
[2020-04-14] MEDS: cloNIDine 0.1 MG TAB PO SCH ×3 (08:27→20:14)
[2020-04-14] MEDS: Insulin Glargine 75 UNITS in Pre-Filled Syringe 1 EACH SC SCH (08:28)
[2020-04-14] MEDS: HumaLOG 300 UNITS/3 ML VIAL SC SCH ×3 (08:28→20:14)
[2020-04-14] MEDS ORDERED: NIFEdipine XL 60 MG TAB PO SCH (09:00)
[2020-04-14] MEDS: Fluticasone Propionate Nasal Spray 16 gm Bottle NASAL SCH (11:34)
[2020-04-14] MEDS: Tuberculin PPD 0.1 ML VIAL I-DERMAL SCH (11:53)
--- NOTE | 2020-04-14 12:02 | ULT ---
Exam: Vein mapping for dialysis access HISTORY: End-stage renal disease. Evaluate for dialysis access. FINDINGS: The bilateral internal jugular veins and subclavian veins are patent without evidence of th rombus. Right brachial artery 5.2 mm Right radial artery 2.8 mm Right ulnar artery 3. mm Left brachial artery 5.5 mm Left radial artery 2.9 mm Left ulnar artery 3.0 mm RIGHT CEPHALIC VEIN in millimeters 3.2 -- Shoulder 3.8 -- Upper arm 3.0 -- Mid upper arm 4.3-- Just proximal to the elbow 3.7 -- Just distal to the elbow 3.7 -- Forearm 3.4 -- Wrist RIGHT BASILIC VEIN in millimeters 4.5 -- Shoulder 5.4 -- Upper arm 4.9 -- Mid upper arm 5.6 -- Just proximal to the elbow 2.4 -- Just distal to the elbow 2.3 -- Forearm 2.7 -- Wrist LEFT CEPHALIC VEIN in millimeters 3.5 -- Shoulder 2.7 -- Upper arm Decreased lumen compressibility is present involving the left upper extremity cephalic vein at the le kali of the mid arm suggesting nonocclusive thrombus. This was seen on prior study. 4.5 -- Just proximal to the elbow 4.2 -- Just distal to the elbow 3.1 -- Forearm 3.0 -- Wrist LEFT BASILIC VEIN in millimeters 4.2 -- Shoulder 3.3 -- Upper arm 4.5 -- Mid upper arm 2.8 -- Just proximal to the elbow 2.3 -- Just distal to the elbow 2.1 -- Forearm 2.1 -- Wrist IMPRESSION: 1. Incomplete luminal compressibility mid left upper extremity cephalic vein suspicious for nonocclus jennifer thrombus. 2. Remainder of the venous diameters of the bilateral upper extremities is as described above.
[2020-04-14 12:13] VITALS: BMI 32.6
--- NOTE | 2020-04-14 14:12 | PRG ---
DATE OF SERVICE: 04/14/2020 SUBJECTIVE: Patient was seen and examined at bedside and overnight events noted. Patient denies any shortness of breath or chest pain or palpitation. No history of nausea or vomiting or diarrhea or fever or chills or cramps. OBJECTIVE: GENERAL: This is a well-built male in no acute distress. VITAL SIGNS: Temperature 98.2. Heart rate 86. Respiratory rate 24. Blood pressure 115/67. HEENT: Atraumatic, normocephalic. Oral mucosa is moist NECK: Supple. CARDIOVASCULAR: S1, S2 heard. Rate and rhythm regular. RESPIRATORY: Clear to auscultation. GASTROINTESTINAL: Abdomen is soft. MUSCULOSKELETAL: No tenderness. No edema. DERMATOLOGIC: No skin rash. NEUROLOGIC: Alert and awake and oriented X3. No focal neurologic deficits. Moving all the extremities. PSYCHIATRIC: Mood and affect normal. LABORATORY DATA: Potassium 3.5, BUN is 76, creatinine is 5.1. ASSESSMENT: 1. End-stage renal disease. Continue dialysis. 2. Edema. 3. Hypertension. 4. Fluid overload. PLAN: To continue on dialysis as tolerated. We will consult Surgery and Case Management. Job ID: [id number]
[2020-04-14] MEDS ORDERED: CEFAZOLIN 2 GM in Premix Bag 1 BAG IVPB SCH (15:00)
[2020-04-14] MEDS ORDERED: Acetaminophen 500 MG TAB PO PRN (15:00)
--- NOTE | 2020-04-14 18:11 | CON ---
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 I have been asked by Dr. Alan to see him regarding dialysis access . He has had a groin catheter placed by Dr. Morgan a few days ago. The patient is right-handed. His ultrasound by mapping reveals superior veins on the right with a partial occlusive antecubital vein on the left. Plan is for right arm fistula and hemodialysis catheter tomorrow. The patient understands risks and benefits, consents. He has bandages on both ACs indicative of recent blood draws in the hospital. He had an IV in his wrist that was removed. ALLERGIES: SULFA. MEDICATIONS: 1. Simvastatin. 2. Insulin. 3. Lisinopril. 4. Carvedilol. 5. Hydrochlorothiazide. PAST MEDICAL HISTORY: Diabetes mellitus insulin dependent and hypertension. PAST SURGICAL HISTORY: Past surgery of ORIF right wrist 2017. FAMILY HISTORY: Diabetes. Otherwise noncontributory. SOCIAL HISTORY: The patient's tobacco none. Alcohol, none. The patient is . PHYSICAL EXAMINATION: VITAL SIGNS: 6 foot 1 inch, 247 pounds, and 32 BMI. 99 degrees, 84, and 128/62. HEAD, EARS, EYES, NOSE, AND THROAT: Unremarkable. LUNGS: Clear to auscultation. CARDIAC: Regular rate and rhythm without murmur or gallop. ABDOMEN: Soft and nontender. EXTREMITIES: Palpable radial pulses bilaterally. Extremities, unremarkable. LABORATORY DATA: White count 6 and hemoglobin 8.3. Basic metabolic profile normal except for BUN 26 and creatinine 5.1. ASSESSMENT AND PLAN: End-stage renal disease. PLAN: Placement os right arm primary fistula and hemodialysis catheter. Possible central line. He understands risks and benefits of proceeding, consents. We will plan this Saturday. Job ID: [id number]
[2020-04-15 05:26] LABS: ALT (SGPT) 8 U/L (8-55); AST (SGOT) 13 U/L (5-34); Albumin 2.9 g/dL (3.5-5.0); Alkaline Phosphatase 97 U/L (40-110); Anion Gap 15 mmol/L (10-20); BUN (Urea Nitrogen) 36 mg/dL (8.9-20.6); Bilirubin, Total 0.2 mg/dL (0.2-1.2); Calc. Creatinine Clearance 24 mL/min (70-130); Calcium 6.6 mg/dL (7.8-10.44); Carbon Dioxide 25 mmol/L (22-29); Chloride 103 mmol/L (98-107); Estimated GFR-MDRD 12; Glucose 117 mg/dL (70-105); Potassium 3.6 mmol/L (3.5-5.1); Protein, Total 6.9 g/dL (6.0-8.3); Sodium 139 mmol/L (136-145)
[2020-04-15 05:42] LABS: Band 1 % (5-11); Eosinophils 2 % (0-10); Hemoglobin 8.5 g/dL (14.0-18.0); Hypochromia SLIGHT = 6-15 cells (100X) (0-5/hpf); Lymphocytes 13 % (21-51); MDiff Complete? YES; Mean Corpuscular HGB CONC 32.2 g/dL (32.0-36.0); Mean Corpuscular Hemoglobin 30.8 pg (27.0-31.0); Mean Corpuscular Volume 95.7 fL (78.0-98.0); Mean Platelet Volume 8.8 fL (7.4-10.4); Monocytes 6 % (0-10); Neutrophil 78 % (42-75); Platelet Count 143 thou/uL (130-400); Platelet Morphology Comment Appears Adequate; RBC Distribution Width 16.2 % (11.5-14.5); Red Blood Cell (RBC) Count 2.75 mill/uL (4.70-6.10); White Blood Cell (WBC) Count 5.9 thou/uL (4.8-10.8)
[2020-04-15] MEDS ORDERED: NIFEdipine XL 60 MG TAB PO SCH (07:08)
--- NOTE | 2020-04-15 07:08 | PDOC.FM ---
- Subjective Subjective: pt resting comfortably in bed, denies symptoms with low bps, no presyncope or headache - Objective Vital Signs & Weight: Vital Signs (12 hours) Temp Pulse Resp BP Pulse Ox 04/15/20 06:57 97 04/14/20 23:47 97.6 F 77 18 108/69 97 04/14/20 20:01 98.4 F 78 14 96/57 L 96 Weight Admit Weight 117.753 kg Weight 112.2 kg I&O: 04/14/20 04/15/20 04/16/20 06:59 06:59 06:59 Intake Total 1110 1560 Balance 1110 1560 Result Diagrams: 04/15/20 04:19 04/15/20 04:19 Phys Exam - Physical Examination Constitutional: NAD HEENT: moist MMs Neck: no JVD Gastrointestinal: no distention Musculoskeletal: pulses present Neurological: moves all 4 limbs Psychiatric: normal affect Skin: no rash Dx/Plan (1) HTN (hypertension) Code(s): I10 - ESSENTIAL (PRIMARY) HYPERTENSION Status: Acute (2) IDDM (insulin dependent diabetes mellitus) Code(s): IZW4503 - Status: Acute (3) ESRD (end stage renal disease) Code(s): N18.6 - END STAGE RENAL DISEASE Status: Acute (4) Hypertensive urgency Code(s): I16.0 - HYPERTENSIVE URGENCY Status: Acute (5) Hypomagnesemia Code(s): E83.42 - HYPOMAGNESEMIA Status: Acute (6) Anemia in chronic kidney disease Code(s): N18.9 - CHRONIC KIDNEY DISEASE, UNSPECIFIED; D63.1 - ANEMIA IN CHRONIC KIDNEY DISEASE Status: Acute (7) Suspected COVID-19 virus infection Code(s): Z20.828 - CONTACT W AND EXPOSURE TO OTH VIRAL COMMUNICABLE DISEASES Status: Acute - Plan Plan: ESRD -est. with Dr. Clinton, documented worsening kidney fxn. - Dr. Morgan contacted from ED for access - Dr. Lee consulted for ED for dialysis - dialysis per nephro HTN - continue home meds - decrease procardia - hydralazine prn viral illness - zofran prn - covid neg Hypomagnesemia - resolved, monitor anemia of chronic disease - stable, improved from prior - monitor IDDM - SSI, QACHS accuchecks - continue home insulin cHTN - continue home meds CHF - unsure of type, seems to be at baseline - request echo from [employer] - continue home meds pcp: Mert ([facility] call) ppx: heparin code: Full dispo: access and fistula today, dialysis and then DC if successful. outpt MWF dialysis has been arranged. Addendum - Attending - Attending Attestation Date/Time: 04/15/20 3735 I personally evaluated the patient and discussed the management with Dr. Sutherland. I agree with the History, Examination, Assessment and Plan documented above with any addition or exceptions noted below. Patient stable. Outpatient HD set up. Modulating BP meds. Catheter and fistula placement today. Hopeful discharge in next day or so.
[2020-04-15] MEDS: Carvedilol 25 MG TAB PO SCH ×2 (08:55→21:19)
[2020-04-15] MEDS: HumaLOG 300 UNITS/3 ML VIAL SC SCH ×3 (08:55→21:23)
[2020-04-15] MEDS: Heparin 5,000 UNITS/ML VIAL SC SCH ×2 (08:56→21:19)
[2020-04-15] MEDS: Fluticasone Propionate Nasal Spray 16 gm Bottle NASAL SCH (08:56)
[2020-04-15] MEDS: Insulin Glargine 75 UNITS in Pre-Filled Syringe 1 EACH SC SCH (08:56)
[2020-04-15] MEDS: NIFEdipine XL 30 MG TAB PO SCH ×2 (09:02→18:50)
[2020-04-15] MEDS: cloNIDine 0.1 MG TAB PO SCH (09:02)
[2020-04-15] MEDS: hydrALAZINE 25 MG TAB PO SCH ×3 (09:02→21:19)
--- NOTE | 2020-04-15 11:04 | PRG ---
DATE OF SERVICE: 04/15/2020 SUBJECTIVE: Patient was seen and examined at bedside and overnight events noted. Patient denies any shortness of breath or chest pain or palpitation. No history of nausea or vomiting or diarrhea or fever or chills or cramps. OBJECTIVE: General: This is a well-built male, in no apparent distress. Vital Signs: Temperature 98.3. Heart rate 80. Respiratory rate 20. Blood pressure 122/63. HEENT: Atraumatic, normocephalic. Oral mucosa is moist. Neck: Supple. Cardiovascular: S1, S2 heard. Rate and rhythm regular. Respiratory: Clear to auscultation. Gastrointestinal: Abdomen is soft. Musculoskeletal: No tenderness. No edema. Dermatologic: No skin rash. Neurologic: Alert and awake and oriented x3. No focal neurologic deficits. Moving all the extremities. Psychiatric: Mood and affect normal. LABORATORY DATA: Potassium 3.2, BUN is 36, and creatinine 6.5. ASSESSMENT AND PLAN: 1. End-stage renal disease. Continue dialysis. 2. Edema. Remove fluid. 3. Hypertension. 4. Fluid overload. 5. Chronic anemia. 6. Continue dialysis as tolerated. Job ID: [id number]
[2020-04-15] MEDS ORDERED: Bupivacaine HCl 0.5%/Epinephrine 1:200,000/PF 30 ml Vial ONE (12:12)
[2020-04-15] MEDS ORDERED: Lidocaine 1% PF 5 ML VIAL ONE (12:12)
[2020-04-15] MEDS ORDERED: Ondansetron PF 4 MG/2 ML Vial ONE ×2 (12:12→15:52)
[2020-04-15] MEDS ORDERED: Fentanyl 100 MCG/2 ML VIAL ONE (13:51)
[2020-04-15] MEDS ORDERED: Lidocaine 1% w/Epinephrine 1:100K 20 ML VIAL ONE (13:53)
[2020-04-15] MEDS ORDERED: Heparin 10,000 UNITS/1 ML VIAL ONE (13:53)
[2020-04-15] MEDS ORDERED: Sodium Chloride 0.9% 20 ML ONE (13:53)
[2020-04-15] MEDS ORDERED: Bupivacaine PF 0.5% 30 ML VIAL ONE (13:53)
[2020-04-15] MEDS ORDERED: Protamine Sulfate 50 MG/5 ML VIAL ONE (13:53)
[2020-04-15] MEDS ORDERED: Heparin 5,000 UNITS/ML VIAL ONE (13:53)
[2020-04-15] MEDS ORDERED: Propofol 500 MG/50 ML VIAL ONE (14:01)
[2020-04-15] MEDS ORDERED: PROPOFOL 40 ML ONE (14:01)
[2020-04-15] MEDS ORDERED: Midazolam HCl 2 mg/2 ml Vial ONE (14:12)
[2020-04-15] MEDS ORDERED: Famotidine/PF 20 mg/2ml Vial ONE (14:12)
[2020-04-15] MEDS ORDERED: Promethazine HCl 25 MG/ML VIAL SLOW IVP PRN (15:44)
[2020-04-15] MEDS ORDERED: Promethazine HCl 25 MG/ML VIAL IM PRN (15:44)
[2020-04-15] MEDS ORDERED: Ondansetron HCl/PF 4 MG/2 ML Vial IVP PRN (15:44)
[2020-04-15] MEDS ORDERED: traMADol HCl 50 MG TAB PO PRN (16:00)
--- NOTE | 2020-04-15 16:10 | RAD ---
RADIOGRAPH CHEST 1 VIEW: DATE: 04/15/2020 TIME: 3:57 PM HISTORY: Hemodialysis catheter placement in 40-year-old male COMPARISON: 04/11/2020 FINDINGS: There is a new right-sided hemodialysis catheter with distal tip in right atrium. No pneumothorax. No other interval change. Cardiomegaly without pulmonary edema. No consolidation. No effacement of lateral costophrenic angles. IMPRESSION: 1. Right-sided hemodialysis catheter placement without pneumothorax. 2. Cardiomegaly
[2020-04-15] MEDS: Ondansetron ODT 4 MG TAB PO PRN (18:50)
[2020-04-15 20:38] VITALS: TEMP 98.2
[2020-04-15] MEDS: Tuberculin PPD 0.1 ML VIAL I-DERMAL SCH (22:23)
--- NOTE | 2020-04-15 23:33 | OP ---
DATE OF PROCEDURE: 04/15/2020 PREOPERATIVE DIAGNOSES: End-stage renal disease and needs dialysis access. Bowel sound by mapping, partial occlusion left antecubital cephalic vein by vein mapping due to iatrogenic hospital access. POSTOPERATIVE DIAGNOSES: End-stage renal disease and needs dialysis access. Bowel sound by mapping, partial occlusion left antecubital cephalic vein by vein mapping due to iatrogenic hospital access. PROCEDURES PERFORMED: Right internal jugular cuff tunneled dialysis catheter, ultrasound and fluoroscopy use. Right Gillian wrist fistula, 4 mm coronary dilator to cephalic vein and radial artery of excellent caliber. ANESTHESIA: Regional TIVA, local 0.5% Marcaine 30 mL mixed with 1% Xylocaine with epinephrine 20 mL. DESCRIPTION OF PROCEDURE: The patient was taken to the operating room, where under immediate sedation regional anesthesia, neck and chest, right upper extremity prepped with ChloraPrep and draped in routine fashion. Local anesthetic was infiltrated in the skin and subcutaneous tissue about the operative site. Using ultrasound guidance, the right internal jugular vein was cannulated with a trocar catheter. J-wire threaded, trocar catheter removed. Skin site was enlarged sharply. A stab incision was made with the right chest through the planned exit site. Using a tunneling device, a pre-curved AngioDynamics cuffed tunneled hemodialysis catheter tunneled between 2 incisions, placed a fabric cuff in the skin exit site. Catheter was secured with 2 interrupted sutures of 3-0 nylon and sterile dressing applied. Small and medium-sized dilators were placed over the J-wire into the internal jugular vein, removed. Dilator and Peel-Away Sheath placed over the J-wire into the superior vena cava and dilator and J-wire were removed. Catheter placed with a Peel-Away sheath and Peel-Away sheath removed. Platysma approximated with 4-0 Monocryl, skin with subdermal 4-0 Monocryl and Landen glue applied. Each port aspirated of blood, flushed with saline solution and heparinized saline solution 1000 units of heparin per mL, indicating volume of the port. Dermal glue applied. Final fluoroscopic images reveal good line placement. Attention was then turned to right arm where incision was made longitudinally at the wrist between the radial artery and cephalic vein. Both were dissected free of surrounding the silastic vessel loops, cephalic vein stump on the hand side, ligated with 3-0 silk tie, divided, spatulated, interrogated with coronary dilators, passing coronary dilators from 2 mm to 4 mm coronary dilator throughout the length without obstruction. The patient had been given 6000 units of heparin intravenously. The heparinized saline solution flushed the cephalic vein and an atraumatic bulldog clamp applied. The radial artery dissected free, clamped proximally and distally, controlled and a longitudinal arteriotomy was made sharply and guided with a Chase scissors for 2.5 cm anastomosis. A vein accordingly spatulated and end-vein to radial artery at the wrist approximated with continuous suture of 6-0 Prolene for the anastomosis. After completing the anastomosis, releasing the clamps, noted good Doppler signal throughout the length of the vein and forearm. The vein was inspected and several branch points clipped more proximally. Good hemostasis noted. The patient was given 25 mg of protamine intravenously by Anesthesia. Subcutaneous tissues were approximated with 3-0 Monocryl, skin with subdermal 4-0 Monocryl and Landen glue applied. The patient tolerated the procedure well. Job ID: [id number]
[2020-04-15 23:37] VITALS: BP 160/82
[2020-04-16 06:13] LABS: QuantiFERON-TB Gold Plus Negative (Negative)
--- NOTE | 2020-04-17 05:39 | DIS ---
DATE OF ADMISSION: 04/11/2020 DATE OF DISCHARGE: 04/15/2020 PRIMARY CARE PHYSICIAN: Harlan Painting MD ADMITTING ATTENDING: Ace Adkins MD DISCHARGE ATTENDING: Jersey Helm MD CONSULTS: 1. Nephrology, Dr. Lee. 2. Surgery, Dr. Miguel Fang. IMAGING DATA: Chest x-ray shows no acute cardiopulmonary process. Abdominal x-ray shows no acute intraabdominal process. Marking ultrasound for fistula. Chest x-ray shows appropriate tip placement of a hemodialysis catheter. No pneumothorax. PROCEDURES: On 04/15, AV fistula created, Trialysis catheter placed by Dr. Miguel Fang. On 04/11, femoral Trialysis catheter placed by Dr. Dre Morgan. DISCHARGE MEDICATIONS: 1. Coreg 25 mg p.o. b.i.d. 2. Lantus 75 units SC daily. 3. Hydralazine 50 mg p.o. t.i.d. 4. Pantoprazole 40 mg p.o. daily. 5. Humalog 10 units SC t.i.d. 6. Retacrit 10,000 units IVP on Saturday, Saturday, and Saturday. 7. Procardia 30 mg p.o. daily. PRIMARY DIAGNOSIS: End-stage renal disease, requiring dialysis. SECONDARY DIAGNOSES: Hypertension, viral illness, hypomagnesemia, anemia of chronic disease, insulin-dependent diabetes mellitus, chronic hypertension, congestive heart failure. HISTORY OF PRESENT ILLNESS/HOSPITAL COURSE: Mr. Vogel is a 40-year-old male with a past medical history significant for insulin-dependent diabetes mellitus and hypertension with worsening renal function. He presented to Dr. Alan's office and was asked to go to the ER for setting up of hemodialysis. In the emergency room, he has had a shortness of breath and a cough with lower extremity swelling, so he was offered COVID, which turned out negative. CBC, CMP, magnesium, chest x-ray, and EKG were ordered. He was given clonidine and promethazine down there. In the emergency department, he had an elevated creatinine and potassium was deemed appropriate for urgent dialysis. Dr. Lee was the on-call physician for Nephrology and was contacted from the ED to initiate dialysis. Dr. Morgan was consulted in the ED to establish access. The patient was initiated dialysis and tolerated this well. Blood pressure was controlled with medications. Procardia was added. The patient remained stable throughout his hospitalization, underwent a daily dialysis, and was set up for outpatient dialysis on Saturday, Saturday, and Saturday. Deemed stable for discharge home. DISCHARGE INSTRUCTIONS: 1. Location: Home. 2. Diet: Renal/diabetic. 3. Activity: As tolerated. 4. Follow up with dialysis on Saturday and PCP in the next 3 to 7 days. Job ID: [id number]
== END 2020-04-15 23:46 | disposition home or self-care (01) | DRG 264 ==
LOC: ERS 08:57 → 2SW 16:36 → OBSVTOIN 16:36
PROVIDERS: ADMIT Student in an Organized Health Care Education/Training Program; ATTEND Student in an Organized Health Care Education/Training Program
PROC: 02HV33Z Insertion of Infusion Device into Superior Vena Cava, Percutaneous Approach (ICD-10-PCS; principal; 2020-04-11)
PROC: 5A1D70Z Performance of Urinary Filtration, Intermittent, Less than 6 Hours Per Day (ICD-10-PCS; 2020-04-11)
PROC: 0JH63XZ Insertion of Tunneled Vascular Access Device into Chest Subcutaneous Tissue and Fascia, Percutaneous Approach (ICD-10-PCS; 2020-04-15)
PROC: 02HV33Z Insertion of Infusion Device into Superior Vena Cava, Percutaneous Approach (ICD-10-PCS; 2020-04-15)
PROC: B548ZZA Ultrasonography of Superior Vena Cava, Guidance (ICD-10-PCS; 2020-04-15)
PROC: B5181ZA Fluoroscopy of Superior Vena Cava using Low Osmolar Contrast, Guidance (ICD-10-PCS; 2020-04-15)
PROC: 031C3ZF Bypass Left Radial Artery to Lower Arm Vein, Percutaneous Approach (ICD-10-PCS; 2020-04-15)
DX: I13.2 Hypertensive heart and chronic kidney disease with heart failure and with stage 5 chronic kidney disease, or end stage renal disease (principal); N18.6 End stage renal disease; Z20.828 Contact with and (suspected) exposure to other viral communicable diseases; E83.42 Hypomagnesemia; D63.1 Anemia in chronic kidney disease; E11.22 Type 2 diabetes mellitus with diabetic chronic kidney disease; I50.9 Heart failure, unspecified; B34.9 Viral infection, unspecified; I16.0 Hypertensive urgency; E66.9 Obesity, unspecified; E78.00 Pure hypercholesterolemia, unspecified; Z79.4 Long term (current) use of insulin; Z88.2 Allergy status to sulfonamides; Z87.891 Personal history of nicotine dependence; Z99.2 Dependence on renal dialysis; Z88.6 Allergy status to analgesic agent; Z68.32 Body mass index [BMI] 32.0-32.9, adult
CPT/HCPCS: 36415; 36416; 71045; 74018; 76000; 80053; 83630; 83735; 83880; 84484; 85007; 85025; 85027; 86480; 86580; 86704; 86706; 86803; 87045; 87046; 87324; 87340; 87427; 87449; 87635; 90935; 93005; 93970; 96361; 96374; 96375; C1752; G0257; G0365; J0670; J0690; J1642; J1644; J1815; J2001; J2250; J2405; J2550; J2704; J2720; J3010; Q0162; Q5105; S0020; S0028; U0003

== ENCOUNTER 2020-05-12 11:06 | Observation (INO) | payer BC ==
[2020-05-12 11:36] LABS: #Basophils 0.1 thou/uL (0.0-0.2); #Eosinphils 0.1 thou/uL (0.0-0.7); #Monocytes 0.6 thou/uL (0.11-0.59); %Basophils 0.7 % (0.0-1.0); %Eosinophils 1.1 % (0.0-10.0); %Lymphocytes 12.4 % (21.0-51.0); %Monocytes 7.4 % (0.0-10.0); %Neutrophils 78.4 % (42.0-75.0); Hemoglobin 12.6 g/dL (14.0-18.0); Mean Corpuscular HGB CONC 33.3 g/dL (32.0-36.0); Mean Corpuscular Hemoglobin 30.9 pg (27.0-31.0); Mean Corpuscular Volume 92.6 fL (78.0-98.0); Mean Platelet Volume 8.3 fL (7.4-10.4); Platelet Count 247 thou/uL (130-400); RBC Distribution Width 14.3 % (11.5-14.5); Red Blood Cell (RBC) Count 4.08 mill/uL (4.70-6.10); White Blood Cell (WBC) Count 7.6 thou/uL (4.8-10.8)
--- NOTE | 2020-05-12 11:48 | RAD ---
Exam: Chest one view HISTORY:Shortness of breath. Comparison: 04/15/2020 FINDINGS: Lines and tubes: Stable right-sided HemoSplit dialysis catheter. Cardiac silhouette: Normal Aorta: Unremarkable Pulmonary vessels: Normal Costophrenic angles: Clear LUNGS: No masses or consolidation. Pneumothorax: None Osseous abnormalities: None IMPRESSION: No acute cardiopulmonary process.
[2020-05-12 12:01] LABS: Lipase 43 U/L (8-78); Phosphorus 3.9 mg/dL (2.3-4.7)
[2020-05-12 12:03] LABS: ALT (SGPT) 19 U/L (8-55); AST (SGOT) 28 U/L (5-34); Albumin 3.9 g/dL (3.5-5.0); Alkaline Phosphatase 125 U/L (40-110); Anion Gap 16 mmol/L (10-20); BUN (Urea Nitrogen) 33 mg/dL (8.9-20.6); Bilirubin, Total 0.4 mg/dL (0.2-1.2); Calc. Creatinine Clearance 0 mL/min (70-130); Calcium 8.2 mg/dL (7.8-10.44); Carbon Dioxide 29 mmol/L (22-29); Chloride 96 mmol/L (98-107); Estimated GFR-MDRD 11; Globulin 4.7 g/dL (2.4-3.5); Glucose 115 mg/dL (70-105); Magnesium 2.4 mg/dL (1.6-2.6); Potassium 3.7 mmol/L (3.5-5.1); Protein, Total 8.6 g/dL (6.0-8.3); Sodium 137 mmol/L (136-145)
[2020-05-12] MEDS ORDERED: Promethazine HCl 25 MG/ML VIAL ONE (12:05)
[2020-05-12] MEDS ORDERED: Pantoprazole 40 MG VIAL ONE (12:05)
[2020-05-12 13:08] LABS: CKMB 6.4 ng/mL (0-6.6)
[2020-05-12 14:56] LABS: Troponin I 0.046 ng/mL (< 0.028)
[2020-05-12 15:06] VITALS: BMI 31.6
[2020-05-12] MEDS ORDERED: Ondansetron PF 4 MG/2 ML Vial IVP PRN ×2 (15:06→15:12)
[2020-05-12] MEDS ORDERED: Ondansetron ODT 4 MG TAB SL PRN (15:06)
[2020-05-12] MEDS ORDERED: Acetaminophen 325 MG TAB PO PRN (15:06)
[2020-05-12] MEDS ORDERED: Labetalol HCl 100 MG/20 ML VIAL SLOW IVP PRN (15:12)
[2020-05-12] MEDS ORDERED: Acetaminophen 500 MG TAB PO PRN (15:12)
[2020-05-12] MEDS ORDERED: Ondansetron ODT 4 MG TAB PO PRN (15:12)
[2020-05-12] MEDS ORDERED: hydrALAZINE 20 MG/ML VIAL SLOW IVP PRN (15:12)
[2020-05-12] MEDS ORDERED: Dextrose 5% in Water 1,000 ML IV PRN (15:12)
[2020-05-12] MEDS ORDERED: HumaLOG 300 UNITS/3 ML VIAL SC PRN ×2 (15:12)
[2020-05-12] MEDS ORDERED: Dextrose 50% Abboject 50 ML SYRINGE SLOW IVP PRN (15:12)
[2020-05-12] MEDS ORDERED: Sodium Chloride 0.9% (PF) 10 ML VIAL FS PRN (15:18)
[2020-05-12] MEDS: Metoclopramide HCl 10 MG/2 ML VIAL IVP SCH ×2 (16:04→21:34)
[2020-05-12] MEDS: chlorproMAZINE HCl 25 MG in Sodium Chloride 0.9% 50 ML IVPB SCH ×2 (16:04→21:34)
[2020-05-12 18:21] LABS: Troponin I 0.036 ng/mL (< 0.028)
--- NOTE | 2020-05-12 18:44 | CON ---
DATE OF CONSULTATION: 05/12/2020 CONSULTING PHYSICIAN: ER doctor. REASON FOR CONSULTATION: End-stage renal disease evaluation. REASON FOR ADMISSION: Weakness, abdominal pain. HISTORY OF PRESENT ILLNESS: This is a 40-year-old male with history of hypertension, type 2 diabetes, end-stage renal disease, on hemodialysis, came to the hospital with weakness and hypotension, who has been evaluated. The patient got dialysis today. No fever or chills. He is complaining of nausea and vomiting. PAST MEDICAL HISTORY: Positive for type 2 diabetes, hypertension, end-stage renal disease, CHF. PAST SURGICAL HISTORY: Left wrist surgery. HOME MEDICATIONS: Reviewed. ALLERGIES: SULFA. SOCIAL HISTORY: No smoking, alcohol, or illicit drugs. FAMILY HISTORY: No history of kidney disease. REVIEW OF SYSTEMS: The following complete review of systems was negative, unless otherwise mentioned in the HPI or below: Constitutional: Weight loss or gain, ability to conduct usual activities. Skin: Rash, itching. Eyes: Double vision, pain. ENT/Mouth: Nose bleeding, neck stiffness, pain, tenderness. Cardiovascular: Palpitations, dyspnea on exertion, orthopnea. Respiratory: Shortness of breath, wheezing, cough, hemoptysis, fever or night sweats. Gastrointestinal: Poor appetite, abdominal pain, heartburn, nausea, vomiting, constipation, or diarrhea. Genitourinary: Urgency, frequency, dysuria, nocturia. Musculoskeletal: Pain, swelling. Neurologic/Psychiatric: Anxiety, depression. Allergy/Immunologic: Skin rash, bleeding tendency. PHYSICAL EXAMINATION: GENERAL: This is a well-built male, in no apparent distress. VITAL SIGNS: Reviewed. HEENT: Atraumatic, normocephalic. Oral mucosa moist. NECK: Supple. CV: S1 and S2 heard. Rate and rhythm regular. RESPIRATORY: Clear. GI: Abdomen is soft. MUSCULOSKELETAL: 1+ edema. DERMATOLOGIC: No skin rash. NEUROLOGIC: Alert and awake. PSYCHIATRIC: Normal mood and affect. LABORATORY DATA: Hemoglobin is 12.6. Potassium 3.7, BUN is 33, creatinine 6.2, albumin is 3.9. ASSESSMENT AND PLAN: 1. End-stage renal disease. Continue dialysis. 2. Edema. 3. History of hypertension. 4. Anemia of chronic disease. PLAN: To continue on dialysis as tolerated. Job ID: [id number]
[2020-05-12] MEDS ORDERED: Pantoprazole 40 MG VIAL IVP SCH (21:00)
[2020-05-12] MEDS: Pantoprazole 40 MG VIAL IVP SCH (21:49)
--- NOTE | 2020-05-12 23:04 | HP ---
PRIMARY CARE PROVIDER: Dr. Harlan Painting. CHIEF COMPLAINT: Nausea, vomiting, and hiccups. HISTORY OF PRESENT ILLNESS: This is a 40-year-old male, who presents to [facility] Emergency Department in transfer from his hemodialysis session, which was cut in half due to persistent nausea, vomiting, and hypotension. The patient states he has had difficulty with nausea, vomiting and hiccups over the last several weeks without alleviating factors or taking any medication of to alleviate his symptoms. The patient denied any travel history, family members with similar symptoms or known sick contacts. The patient states he has been undergoing hemodialysis over the last 4 weeks on Saturday, , and Saturdays. The patient also underwent AV fistula placement in his right upper extremity within the last few weeks. The patient was recently admitted to [facility] from 04/11 through 04/15/2020, at which point, he was initiated on hemodialysis. The patient does state he has recently been placed on Protonix and Reglan due to concern for gastroparesis and persistent nausea. The patient states his last oral intake was in the last 24 hours and last bowel movement was normal within the last 24 hours. In the emergency room, the patient underwent general evaluation, receiving IV Protonix 80 mg x1 dose and Phenergan 25 mg IV piggyback. Workup was essentially unrevealing and patient was referred to the Hospitalist Service for further evaluation. PAST MEDICAL HISTORY: 1. End-stage renal disease with initiation of hemodialysis, 04/2020. 2. Diabetes mellitus type 2, insulin requiring. 3. Diabetic gastroparesis, suspected. 4. Hypertension. PAST SURGICAL HISTORY: 1. Status post open reduction and internal fixation of left wrist fracture. 2. Status post right upper extremity AV fistula placement. 3. Status post tunneled hemodialysis catheter placement. CURRENT MEDICATIONS: 1. Carvedilol 25 mg p.o. b.i.d. 2. Hydralazine 50 mg p.o. t.i.d. 3. Glargine insulin 75 units subcutaneously daily. 4. Protonix 40 mg p.o. daily. 5. Nifedipine XL 30 mg p.o. daily. 6. Humalog 10 units subcutaneously t.i.d. with meals. 7. Protonix dose unknown. 8. Metoclopramide dose unknown. ALLERGIES: BACTRIM. FAMILY HISTORY: Positive for hypertension and diabetes mellitus. SOCIAL HISTORY: Resides in the [facility]. No current alcohol, tobacco, or illicit drug use. REVIEW OF SYSTEMS: CONSTITUTIONAL: Negative for weight loss or gain, ability to conduct usual activities. SKIN: Negative for rash, itching. EYES: Negative for double vision, pain. ENT/MOUTH: Negative for nose bleeding, neck stiffness, pain, tenderness. CARDIOVASCULAR: Negative for palpitations, dyspnea on exertion, orthopnea. RESPIRATORY: Negative for shortness of breath, wheezing, cough, hemoptysis, fever or night sweats. GASTROINTESTINAL: Negative for poor appetite, abdominal pain, heartburn, nausea, vomiting, constipation, or diarrhea. GENITOURINARY: Negative for urgency, frequency, dysuria, nocturia. MUSCULOSKELETAL: Negative for pain, swelling. NEUROLOGIC/PSYCHIATRIC: Negative for anxiety, depression. ALLERGY/IMMUNOLOGIC: Negative for skin rash, bleeding tendency. Otherwise negative except as stated per HPI. PHYSICAL EXAMINATION: VITAL SIGNS. Blood pressure 138/93, pulse 99, respiratory rate 16, temperature 99.5 degrees Fahrenheit, and O2 saturation 99% on room air. GENERAL APPEARANCE: This is a 40-year-old male, alert and oriented x3, pleasant, conversant, in mild distress. HEENT: Pupils are equal, round, reactive to light and accommodation. Extraocular muscles are intact. No scleral icterus. No conjunctival injection. Nares are patent. OP is clear. Teeth in fair repair. NECK: Supple. No cervical adenopathy. No thyromegaly. No carotid bruits. No JVD appreciated. Cervical spine with full active and passive range of motion. No meningeal signs noted. CHEST: Lungs are clear to auscultation bilaterally. CARDIOVASCULAR EXAM: S1, S2 without noted murmur, rub, or gallop. ABDOMEN: Rounded, soft, nontender, and nondistended. Bowel sounds are positive in all 4 quadrants. There is no hepatosplenomegaly. No abdominal bruits. No rebound or guarding appreciated. EXTREMITIES: Warm and dry with fair turgor. No clubbing, cyanosis, or asymmetric edema appreciated. Pulses palpable distally at the dorsalis pedis, posterior tibial, and popliteal arteries bilaterally. Capillary refill less than 2 seconds. Right upper extremity AV fistula in place. NEUROLOGIC: Cranial nerves 2 through 12 are grossly intact. No focal or lateralizing signs appreciated. PERTINENT LABORATORY AND X-RAY FINDINGS: Sodium 137, potassium 3.7, chloride 96, CO2 of 29, BUN 33, creatinine 6.82, estimated GFR of 11, glucose 115, calcium 8.2, phosphorus 3.9, magnesium 2.4, alkaline phosphatase 125. Troponin I 0.046 x2. Albumin 3.9, lipase 43. CBC showed white blood cell count of 7.6, hemoglobin 13, hematocrit 38, platelet count 247, 78% neutrophils. Portable chest x-ray dated 05/12/2020, showed no acute cardiopulmonary process. ASSESSMENT AND PLAN: 1. Nausea and vomiting. Suspect multifactorial. Continue antiemetics with Zofran 4 mg IV q.6 hours with additional Reglan 10 mg IV q.6 hours. Clear liquids as tolerated. Suspect component of #2. 2. Intractable hiccups. Initiate Thorazine 25 mg IV q.6 hours. Monitor clinical response. 3. End-stage renal disease with hemodialysis. Consult Nephrology Service for ongoing hemodialysis during the hospital course. No current evidence to suggest acute volume overload. 4. Hypertension. Confirm home blood pressure regimen and monitor clinical response. Hydralazine p.r.n. systolic greater than or equal to 170. 5. Diabetes mellitus type 2, insulin requiring. Insulin sliding scale for reflexive coverage. ADA diet when tolerating p.o. intake. Serial Accu-Cheks before meals and at bedtime. 6. Prophylaxis. SCDs while in bed. Protonix 40 mg IV q.12 hours with additional Reglan 10 mg IV q.6 hours. 7. Code status is full. Surrogate medical decision maker not identified. Job ID: [id number]
[2020-05-13 04:23] LABS: ALT (SGPT) 19 U/L (8-55); AST (SGOT) 27 U/L (5-34); Albumin 3.5 g/dL (3.5-5.0); Alkaline Phosphatase 112 U/L (40-110); Anion Gap 17 mmol/L (10-20); BUN (Urea Nitrogen) 38 mg/dL (8.9-20.6); Bilirubin, Total 0.4 mg/dL (0.2-1.2); Calc. Creatinine Clearance 20 mL/min (70-130); Calcium 7.9 mg/dL (7.8-10.44); Carbon Dioxide 26 mmol/L (22-29); Chloride 98 mmol/L (98-107); Estimated GFR-MDRD 9; Globulin 4.1 g/dL (2.4-3.5); Glucose 81 mg/dL (70-105); Potassium 3.7 mmol/L (3.5-5.1); Protein, Total 7.6 g/dL (6.0-8.3); Sodium 137 mmol/L (136-145)
[2020-05-13 04:26] LABS: Band 1 % (5-11); Hemoglobin 11.8 g/dL (14.0-18.0); Hypochromia SLIGHT = 6-15 cells (100X) (0-5/hpf); Lymphocytes 10 % (21-51); MDiff Complete? YES; Mean Corpuscular Hemoglobin 30.9 pg (27.0-31.0); Mean Corpuscular Volume 93.5 fL (78.0-98.0); Mean Platelet Volume 8.2 fL (7.4-10.4); Monocytes 5 % (0-10); Neutrophil 84 % (42-75); Platelet Count 203 thou/uL (130-400); Platelet Morphology Comment Appears Adequate; RBC Distribution Width 14.2 % (11.5-14.5); Red Blood Cell (RBC) Count 3.83 mill/uL (4.70-6.10); White Blood Cell (WBC) Count 6.9 thou/uL (4.8-10.8)
[2020-05-13] MEDS: chlorproMAZINE HCl 25 MG in Sodium Chloride 0.9% 50 ML IVPB SCH ×4 (04:35→20:47)
[2020-05-13] MEDS: Metoclopramide HCl 10 MG/2 ML VIAL IVP SCH ×2 (04:35→10:33)
[2020-05-13] MEDS: Pantoprazole 40 MG VIAL IVP SCH (09:06)
[2020-05-13] MEDS ORDERED: chlorproMAZINE HCl 25 MG TAB PO PRN (11:04)
--- NOTE | 2020-05-13 11:17 | PDOC.HOSPP ---
- Subjective Encounter Date: 05/13/20 Encounter Time: 11:15 Subjective: f/u for N/V, DM gastroparesis and hiccups. Feels better overall with Thorazine/ Reglan/Zofran/Protonix. - Objective Vital Signs & Weight: Vital Signs (12 hours) Temp Pulse Resp BP BP Pulse Ox 05/13/20 07:35 98.6 F 89 16 145/85 H 96 05/13/20 04:21 97.3 F L 96 12 150/84 H 98 Weight Weight 239 lb 4.8 oz I&O: 05/12/20 05/13/20 05/14/20 06:59 06:59 06:59 Intake Total 200 Output Total 0 Balance 200 Result Diagrams: 05/13/20 03:41 05/13/20 03:41 Additional Labs: Accuchecks 05/13/20 05/12/20 05/12/20 06:25 21:18 16:47 POC Glucose 90 79 102 EKG Reviewed by me: Yes (Tele - SR) Hospitalist ROS - Medication Medications: Active Medications Generic Name Dose Route Start Last Admin Trade Name Freq PRN Reason Stop Dose Admin Chlorpromazine HCl 25 mg/ 51 mls @ 102 mls/hr 05/12/20 16:00 05/13/20 10:33 Sodium Chloride IVPB 51 mls 0400,1000,1600,2200 CALLI Administration Sodium Chloride 10 ml 05/12/20 15:18 05/12/20 21:35 Normal Saline Pf FS 10 ml PRN PRN Administration RECONSTITUTION - Exam General Appearance: NAD, awake alert Eye: PERRL, anicteric sclera ENT: normocephalic atraumatic, no oropharyngeal lesions Neck: supple, symmetric, no JVD, no thyromegaly, no lymphadenopathy Heart: RRR, no murmur, no gallops, no rubs Heart - other findings: S1, S2 Respiratory: CTAB, no wheezes, no rales, no ronchi, normal chest expansion Gastrointestinal: soft, non-tender, non-distended, normal bowel sounds Extremities: no cyanosis, no clubbing Skin: normal turgor, no lesions Neurological: cranial nerve grossly intact, no new deficit Musculoskeletal: normal tone, normal strength Psychiatric: normal affect, A&O x 3 Hosp A/P (1) Gastroparesis due to DM Code(s): E11.43 - TYPE 2 DIABETES W DIABETIC AUTONOMIC (POLY)NEUROPATHY; K31.84 - GASTROPARESIS Status: Acute Plan: Continue PPI/Reglan (2) Intractable hiccups Code(s): R06.6 - HICCOUGH Status: Acute Plan: Improved, Continue Thorazine (3) ESRD (end stage renal disease) Code(s): N18.6 - END STAGE RENAL DISEASE Status: Chronic Plan: HD per Renal service (4) HTN (hypertension) Code(s): I10 - ESSENTIAL (PRIMARY) HYPERTENSION Status: Chronic Qualifiers: Hypertension type: essential hypertension Qualified Code(s): I10 - Essential (primary) hypertension Plan: Resume home BP regimen, serial BP monitoring (5) IDDM (insulin dependent diabetes mellitus) Code(s): [id number] - Status: Chronic - 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
[2020-05-13] MEDS ORDERED: Metoclopramide HCl 10 MG TAB PO PRN (11:30)
--- NOTE | 2020-05-13 12:09 | PRG ---
DATE OF SERVICE: 05/13/2020 SUBJECTIVE: The patient was seen and examined at bedside and overnight events noted. The patient denies any shortness of breath or chest pain or palpitation. No history of nausea or vomiting or diarrhea or fever or chills or cramps. OBJECTIVE: GENERAL: This is a well-built male, in no apparent distress. VITAL SIGNS: Temperature 98.6. Heart rate 89. Respiratory rate 16. Blood pressure 145/85. HEENT: Atraumatic, normocephalic. Oral mucosa is moist. NECK: Supple. CARDIOVASCULAR: S1, S2 heard. Rate and rhythm regular. RESPIRATORY: Clear to auscultation. GASTROINTESTINAL: Abdomen is soft. MUSCULOSKELETAL: No tenderness. No edema. DERMATOLOGIC: No skin rash. NEUROLOGIC: Alert and awake and oriented x3. No focal neurologic deficits. Moving all the extremities. PSYCHIATRIC: Mood and affect normal. LABORATORY DATA: Potassium is 3.7, BUN is 38, creatinine is 7.8. ASSESSMENT AND PLAN: 1. End-stage renal disease. We will continue dialysis Saturday, , Saturday. 2. Edema. Remove fluid with dialysis. 3. Hypertension. 4. Anemia of chronic disease. No acute indication for dialysis. We will continue on dialysis Saturday, , Saturday as tolerated. Job ID: [id number]
[2020-05-13] MEDS: hydrALAZINE 25 MG TAB PO SCH ×3 (14:41→20:49)
[2020-05-13] MEDS: Carvedilol 25 MG TAB PO SCH (20:48)
[2020-05-14] MEDS: chlorproMAZINE HCl 25 MG in Sodium Chloride 0.9% 50 ML IVPB SCH ×3 (05:11→18:17)
[2020-05-14 05:20] LABS: Anion Gap 17 mmol/L (10-20); BUN (Urea Nitrogen) 50 mg/dL (8.9-20.6); Calc. Creatinine Clearance 17 mL/min (70-130); Calcium 7.6 mg/dL (7.8-10.44); Carbon Dioxide 29 mmol/L (22-29); Chloride 98 mmol/L (98-107); Estimated GFR-MDRD 8; Glucose 111 mg/dL (70-105); Potassium 3.7 mmol/L (3.5-5.1); Sodium 140 mmol/L (136-145)
[2020-05-14] MEDS ORDERED: Insulin Glargine 10 UNITS in Pre-Filled Syringe 1 EACH SC SCH (09:00)
[2020-05-14] MEDS: hydrALAZINE 25 MG TAB PO SCH ×3 (09:40→15:13)
[2020-05-14] MEDS: Carvedilol 25 MG TAB PO SCH (09:40)
[2020-05-14] MEDS ORDERED: Heparin 10,000 UNITS/ 10 ML VIAL ONE (12:37)
[2020-05-14 15:19] LABS: HBSAB Concentration 1.36 mIU/mL; HBSAg Index 0.23 S/CO (0-0.99); Hep B Surf AB Non-Reactive (NonReactive); Hep B Surf Ag Non-Reactive S/CO (NonReactive)
--- NOTE | 2020-05-14 15:37 | PRG ---
DATE OF SERVICE: 05/14/2020 SUBJECTIVE: Patient was seen and examined at bedside and overnight events noted. Patient denies any shortness of breath or chest pain or palpitation. No history of nausea or vomiting or diarrhea or fever or chills or cramps. OBJECTIVE: GENERAL: This is a well-built male, in no apparent distress. VITAL SIGNS: Temperature 97.9, pulse 83, respirations 16, blood pressure 102/67. HEENT: Atraumatic, normocephalic. Oral mucosa is moist. NECK: Supple. CARDIOVASCULAR: S1, S2 heard. Rate and rhythm regular. RESPIRATORY: Clear to auscultation. GASTROINTESTINAL: Abdomen is soft. MUSCULOSKELETAL: No tenderness. No edema. DERMATOLOGIC: No skin rash. NEUROLOGIC: Alert and awake and oriented x3. No focal neurologic deficits. Moving all the extremities. PSYCHIATRIC: Mood and affect normal. LABORATORY DATA: Potassium 3.7, BUN is 50, and creatinine is 8.8. ASSESSMENT AND PLAN: 1. End-stage renal disease. Continue dialysis as tolerated. 2. Edema. 3. History of hypertension. 4. Anemia. Continue dialysis as tolerated. Hiccups are better. Job ID: [id number]
--- NOTE | 2020-05-14 18:08 | PDOC.HOSPP ---
- Subjective Encounter Date: 05/14/20 Subjective: Tolerating his HD - Objective Vital Signs & Weight: Vital Signs (12 hours) Temp Pulse Resp BP BP BP Pulse Ox 05/14/20 15:13 84 150/100 H 05/14/20 12:53 97.9 F 86 16 102/67 98 05/14/20 09:40 98.5 F 83 16 183/103 H 97 Weight Admit Weight 239 lb 4.8 oz Weight 239 lb 4.8 oz I&O: 05/13/20 05/14/20 05/15/20 06:59 06:59 06:59 Intake Total 200 1010 840 Output Total 0 1900 Balance 200 1010 -1060 Result Diagrams: 05/13/20 03:41 05/14/20 04:22 Additional Labs: Accuchecks 05/14/20 05/14/20 05/14/20 17:01 11:31 06:03 POC Glucose 111 H 149 H 114 H 05/13/20 20:13 POC Glucose 193 H Hospitalist ROS - Medication Medications: Active Medications Generic Name Dose Route Start Last Admin Trade Name Freq PRN Reason Stop Dose Admin Carvedilol 25 mg 05/13/20 21:00 05/14/20 09:40 Coreg PO 25 mg BID CALLI Administration Hydralazine HCl 50 mg 05/13/20 15:00 05/14/20 15:13 Apresoline PO 50 mg TID CALLI Administration Chlorpromazine HCl 25 mg/ 51 mls @ 102 mls/hr 05/12/20 16:00 05/14/20 09:40 Sodium Chloride IVPB 51 mls 0400,1000,1600,2200 CALLI Administration Insulin Glargine 10 units/ 0.1 mls @ 0 mls/hr 05/14/20 09:00 05/14/20 09:40 Miscellaneous Medication SC Not Given QAM CALLI Pantoprazole Sodium 40 mg 05/13/20 21:00 05/14/20 09:40 Protonix PO 40 mg BID CALLI Administration Sodium Chloride 10 ml 05/12/20 15:18 05/12/20 21:35 Normal Saline Pf FS 10 ml PRN PRN Administration RECONSTITUTION - Exam General Appearance: awake alert Eye: PERRL ENT: normocephalic atraumatic Neck: supple Heart: RRR, no murmur, no gallops, no rubs Respiratory: CTAB, no wheezes, no rales, no ronchi Gastrointestinal: soft, non-tender, non-distended, normal bowel sounds Hosp A/P - Plan Hosp A/P (1) Gastroparesis due to DM Code(s): E11.43 - TYPE 2 DIABETES W DIABETIC AUTONOMIC (POLY)NEUROPATHY; K31.84 - GASTROPARESIS Status: Acute Plan: Continue PPI/Reglan (2) Intractable hiccups Code(s): R06.6 - HICCOUGH Status: Acute Plan: Improved, Continue Thorazine (3) ESRD (end stage renal disease) Code(s): N18.6 - END STAGE RENAL DISEASE Status: Chronic Plan: HD per Renal service (4) HTN (hypertension) Code(s): I10 - ESSENTIAL (PRIMARY) HYPERTENSION Status: Chronic Qualifiers: Hypertension type: essential hypertension Qualified Code(s): I10 - Essential (primary) hypertension Plan: Resume home BP regimen, serial BP monitoring (5) IDDM (insulin dependent diabetes mellitus) Code(s): [id number] - Status: Chronic - Plan 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 No new complaints. DC home in the AM.
[2020-05-14 18:18] VITALS: BP 119/78; TEMP 97.6
== END 2020-05-14 20:21 | disposition home or self-care (01) ==
LOC: ERS 11:06 → 2NO 13:33 → INTOOBSV 13:33
PROVIDERS: ADMIT Family Medicine; ATTEND Family Medicine
DX: R11.2 Nausea with vomiting, unspecified (principal); R06.6 Hiccough; I12.0 Hypertensive chronic kidney disease with stage 5 chronic kidney disease or end stage renal disease; E11.22 Type 2 diabetes mellitus with diabetic chronic kidney disease; N18.6 End stage renal disease; D63.1 Anemia in chronic kidney disease; E11.43 Type 2 diabetes mellitus with diabetic autonomic (poly)neuropathy; K31.84 Gastroparesis; I95.9 Hypotension, unspecified; E78.5 Hyperlipidemia, unspecified; E78.00 Pure hypercholesterolemia, unspecified; Z79.4 Long term (current) use of insulin; Z79.899 Other long term (current) drug therapy; Z88.1 Allergy status to other antibiotic agents; Z88.2 Allergy status to sulfonamides; Z99.2 Dependence on renal dialysis
CPT/HCPCS: 36415; 36416; 71045; 80048; 80053; 82553; 83690; 83735; 84100; 84484; 85007; 85025; 85027; 86706; 87340; 90935; 93005; 96374; 96375; C9113; G0257; G0378; J1644; J1815; J2550; J2765; J3230

== ENCOUNTER 2020-06-20 07:42 | Outpatient (CLI) | payer BC, OTHER ==
[2020-06-20 17:59] LABS: #Basophils 0.1 thou/uL (0.0-0.2); #Eosinphils 0.2 thou/uL (0.0-0.7); #Lymphocytes 1.1 thou/uL (1.20-3.40); #Monocytes 0.6 thou/uL (0.11-0.59); #Neutrophils 4.3 thou/uL (1.40-6.50); %Basophils 1.1 % (0.0-1.0); %Eosinophils 2.5 % (0.0-10.0); %Lymphocytes 18.1 % (21.0-51.0); %Monocytes 9.1 % (0.0-10.0); %Neutrophils 69.2 % (42.0-75.0); Hemoglobin 12.1 g/dL (14.0-18.0); Mean Corpuscular HGB CONC 31.5 g/dL (32.0-36.0); Mean Corpuscular Hemoglobin 29.3 pg (27.0-31.0); Mean Corpuscular Volume 93.2 fL (78.0-98.0); Mean Platelet Volume 9.1 fL (7.4-10.4); Platelet Count 207 thou/uL (130-400); RBC Distribution Width 14.5 % (11.5-14.5); Red Blood Cell (RBC) Count 4.11 mill/uL (4.70-6.10); White Blood Cell (WBC) Count 6.2 thou/uL (4.8-10.8)
[2020-06-20 18:28] LABS: Anion Gap 16 mmol/L (10-20); BUN (Urea Nitrogen) 41 mg/dL (8.9-20.6); Calc. Creatinine Clearance 0 mL/min (70-130); Calcium 8.3 mg/dL (7.8-10.44); Carbon Dioxide 25 mmol/L (22-29); Chloride 101 mmol/L (98-107); Estimated GFR-MDRD 11; Glucose 148 mg/dL (70-105); Potassium 4.4 mmol/L (3.5-5.1); Sodium 138 mmol/L (136-145)
[2020-06-21 12:19] LABS: SARS-CoV-2 MS2 Positive; SARS-CoV-2 N Gene Negative; SARS-CoV-2 S Gene Negative; SARS-CoV-2 orf1ab Negative
== END 2020-06-20 07:43 | disposition home or self-care (01) ==
LOC: LABBT 07:42
PROVIDERS: ATTEND Specialist
DX: Z01.812 Encounter for preprocedural laboratory examination (principal); Z11.59 Encounter for screening for other viral diseases; N18.6 End stage renal disease; T82.590A Other mechanical complication of surgically created arteriovenous fistula, initial encounter
CPT/HCPCS: 80048; 85025; 87635; U0003

== ENCOUNTER 2020-06-24 07:03 | Day surgery (SDC) | payer BC ==
[2020-06-17 11:35] VITALS: BMI 28.3
--- NOTE | 2020-06-24 06:15 | HP ---
HISTORY OF PRESENT ILLNESS: Rishabh Vogel is a 40-year-old male patient, who had a right arm fistula performed on 04/15/2020. A right internal jugular vein dialysis catheter and a right Gillian fistula performed, 4 mm coronary dilator by the time when he dialyzes Saturday, , and Saturday at [facility]. The patient presents today and his fistula is thrombosed. Ultrasound vein mapping reveals superior vein on the right, but some partial occlusive thrombus in the AC area. When I saw him initially, he had eight bandages both ACs indicative of recent blood draws and IV in his wrist that was removed. On evaluation of the dorsum of his hand, he does have a significant size vein and has joined the more lateral typical cephalic vein in the right arm. Plan is a new fistula right arm, possibly transposing the dorsal hand vein to the radial artery. He has good palpable radial artery. He understands risks and benefits and consents. The patient is followed by Dr. Alan. CURRENT MEDICATIONS: 1. Reglan. 2. Protonix. PAST MEDICAL HISTORY: Diabetes mellitus and hypertension. PAST SURGICAL HISTORY: Right wrist surgery and recent right arm fistula thrombosed. FAMILY HISTORY: Mother had diabetes. Siblings alive and well. SOCIAL HISTORY: Tobacco, none. Alcohol, none. The patient is . ALLERGIES: BACTRIM CAUSES VOMITING. PHYSICAL EXAMINATION: VITAL SIGNS: 219 pounds and 6 feet 1 inch. Blood pressure 148/82, 90 heart rate, and 97.5 degrees. HEAD, EARS, EYES, NOSE, AND THROAT: Unremarkable. LUNGS: Clear to auscultation. CARDIAC: Regular rate and rhythm without murmur or gallop. ABDOMEN: Soft and nontender. No masses. EXTREMITIES: Unremarkable. Right arm fistula thrombosed. Good radial artery palpated. Vein anatomy as noted above. ASSESSMENT AND PLAN: 1. Thrombosed right arm fistula. Plan new right arm fistula outpatient, regional versus general per Anesthesia choice. 2. Diabetes mellitus. The patient has discontinued insulin, antidiabetic medication since he started dialysis. 3. Hypertension. Job ID: [id number]
[2020-06-24] MEDS ORDERED: Acetaminophen 500 MG TAB ONE (07:41)
[2020-06-24] MEDS ORDERED: Lidocaine 1% w/Epinephrine 1:100K 20 ML VIAL ONE (08:12)
[2020-06-24] MEDS ORDERED: Heparin 5,000 UNITS/ML VIAL ONE (08:12)
[2020-06-24] MEDS ORDERED: Protamine Sulfate 50 MG/5 ML VIAL ONE (08:12)
[2020-06-24] MEDS ORDERED: Bupivacaine PF 0.5% 30 ML VIAL ONE (08:12)
[2020-06-24] MEDS ORDERED: Fentanyl 100 MCG/2 ML VIAL ONE ×2 (08:16→10:12)
[2020-06-24] MEDS ORDERED: Midazolam HCl 2 mg/2 ml Vial ONE ×2 (08:16→10:12)
[2020-06-24] MEDS ORDERED: Ketamine 50 MG/ML (10ML VIAL) ONE ×2 (10:13)
[2020-06-24] MEDS ORDERED: Propofol 500 MG/50 ML VIAL ONE (10:16)
[2020-06-24] MEDS ORDERED: PHENYLEPHRINE-NS 100 MCG/ML 10 ML SYRINGE ONE (10:55)
[2020-06-24] MEDS ORDERED: PROPOFOL 200 MG/20 ML VIAL ONE (10:55)
[2020-06-24] MEDS ORDERED: Bupivacaine HCl 0.5%/Epinephrine 1:200,000/PF 30 ml Vial ONE (10:55)
[2020-06-24] MEDS ORDERED: Albumin 5% 250 ML ONE (11:39)
[2020-06-24] MEDS ORDERED: Ondansetron PF 4 MG/2 ML Vial ONE (12:00)
--- NOTE | 2020-06-24 12:47 | OP ---
DATE OF PROCEDURE: 06/24/2020 PREOPERATIVE DIAGNOSES: 1. End-stage renal disease. 2. Thrombosed Gillian fistula, right wrist. POSTOPERATIVE DIAGNOSES: 1. End-stage renal disease. 2. Thrombosed Gillian fistula, right wrist. PROCEDURE PERFORMED: Right arm primary fistula antecubital vein to proximal radial artery, outflow cephalic vein primarily more directly with secondary outflow basilic vein, 4 mm coronary dilator passed without obstruction throughout the length of the upper arm cephalic vein, which was very large. ANESTHESIA: Regional anesthesia and TIVA. DESCRIPTION OF PROCEDURE: The patient was taken to the operating room where under regional and TIVA anesthesia, right upper extremity was prepared with ChloraPrep and draped in routine fashion. An incision was made in the proximal volar forearm longitudinally below the antecubital fossa, carried down through the skin and subcutaneous tissue. The cephalic antecubital vein was very large. It had communication in the basilic vein. Perforating branch was excised and acceptable, but divided between 3-0 silk ties as the antecubital vein more directly fed the upper arm cephalic vein would be more appropriate and was larger. The patient given 6000 units of heparin intravenously and brachial, radial, and ulnar artery dissected free and stump of the antecubital vein, cephalic vein forearm hand side ligated with 3-0 silk tie, divided, spatulated, interrogated with coronary dilators, passing coronary dilators for 2 mm to a 4 mm coronary dilator without obstruction, a very large upper arm cephalic vein. It was flushed with heparinized saline solution. An atraumatic bulldog clamp applied. It was spatulated. The brachial, radial, and ulnar artery clamped with atraumatic vascular clamps. Longitudinal arteriotomy was made sharply, elongated with Chase scissors for longitudinal arteriotomy in the proximal radial artery. Accordingly, the cephalic vein was spatulated and continuous suture of 6-0 Prolene used for the anastomosis, releasing clamps, noting excellent flow in the upper arm cephalic vein, evident by Doppler interrogation. Good hemostasis noted. The patient was given 25 mg of protamine intravenously by Anesthesia. Subcutaneous tissue was approximated with 3-0 Monocryl, skin with subdermal 4-0 Monocryl, and Denio glue applied. The patient tolerated the procedure well. As I interrogated the cephalic vein outflow upper arm, the signal slightly increased when I compressed the basilic vein, feeding vein, and when I occluded the cephalic vein outflow, there was a good signal in the basilic vein. This was left intact in case there was more proximal cephalic vein. Job ID: [id number]
[2020-06-24] MEDS ORDERED: Heparin 10,000 UNITS/ 10 ML VIAL ONE (13:03)
== END 2020-06-24 13:46 | disposition home or self-care (01) ==
LOC: SDC 07:03
PROVIDERS: ATTEND Specialist
PROC: 031B0ZF Bypass Right Radial Artery to Lower Arm Vein, Open Approach (ICD-10-PCS; principal; 2020-06-24)
DX: I12.0 Hypertensive chronic kidney disease with stage 5 chronic kidney disease or end stage renal disease (principal); E11.22 Type 2 diabetes mellitus with diabetic chronic kidney disease; N18.6 End stage renal disease; T82.868A Thrombosis due to vascular prosthetic devices, implants and grafts, initial encounter; Z79.4 Long term (current) use of insulin; Z79.899 Other long term (current) drug therapy; Z88.1 Allergy status to other antibiotic agents; Z88.2 Allergy status to sulfonamides; Z99.2 Dependence on renal dialysis
CPT/HCPCS: 36416; J0670; J0690; J1644; J2250; J2405; J2704; J2720; J3010; P9045; S0020

== ENCOUNTER 2020-11-15 06:29 | Outpatient (CLI) | payer BC ==
[2020-11-15 19:56] LABS: SARS-CoV-2 MS2 Positive; SARS-CoV-2 N Gene Negative; SARS-CoV-2 S Gene Negative; SARS-CoV-2 by NAA Not Detected (NotDetected); SARS-CoV-2 orf1ab Negative
== END 2020-11-15 06:30 | disposition home or self-care (01) ==
LOC: LABBT 06:29
PROVIDERS: ATTEND Ophthalmology Retina Specialist
DX: Z01.812 Encounter for preprocedural laboratory examination (principal); H54.7 Unspecified visual loss; Z20.828 Contact with and (suspected) exposure to other viral communicable diseases
CPT/HCPCS: 87635; U0003

== ENCOUNTER 2020-11-17 06:33 | Day surgery (SDC) | payer BC ==
[2020-11-17] MEDS ORDERED: Fentanyl 100 MCG/2 ML VIAL ONE (06:40)
[2020-11-17] MEDS ORDERED: Midazolam HCl 2 mg/2 ml Vial ONE (06:40)
[2020-11-17] MEDS ORDERED: EPINEPHrine 0.3 MG, Dextrose 50% 3 ML in Ophthalmic Irrigation Solution 500 ML IRR SCH ×2 (06:45)
[2020-11-17] MEDS ORDERED: Phenylephrine 2.5% Ophth Soln 5 ML BOT ONE ×2 (06:48)
[2020-11-17] MEDS ORDERED: Cyclopentolate HCl 1% 5 ML BOT ONE (06:49)
[2020-11-17] MEDS ORDERED: Maxitrol 0.1% Opth Oint 3.5 GM TUBE ONE (11:13)
[2020-11-17] MEDS ORDERED: Triamcinolone 40 MG/ML VIAL ONE (11:13)
[2020-11-17] MEDS ORDERED: CEFAZOLIN 1 GM VIAL ONE (11:13)
[2020-11-17] MEDS ORDERED: Bupivacaine PF 0.75% SDV 10 ML ONE (11:13)
[2020-11-17] MEDS ORDERED: PROPOFOL 200 MG/20 ML VIAL ONE (11:13)
[2020-11-17] MEDS ORDERED: Dextrose 50% Abboject 50 ML SYRINGE ONE (11:13)
[2020-11-17] MEDS ORDERED: Lidocaine 4% PF 5 ML AMP ONE (11:13)
[2020-11-17] MEDS ORDERED: Lidocaine 1% PF 5 ML VIAL ONE (11:13)
--- NOTE | 2020-11-17 18:03 | OP ---
DATE OF PROCEDURE: 11/17/2020 PREOPERATIVE DIAGNOSES: Vitreous hemorrhage and epiretinal membrane. POSTOPERATIVE DIAGNOSES: Vitreous hemorrhage and epiretinal membrane. PROCEDURES PERFORMED: Pars plana vitrectomy and epiretinal membrane peel, left eye. ANESTHESIA: Local with monitored anesthesia care. DESCRIPTION OF PROCEDURE: The patient was identified in preoperative holding area. Appropriate informed consent for the planned surgical procedure on the left eye had been obtained. The patient was transported to the operative suite and appropriate cardiopulmonary monitoring was established. Local anesthesia was obtained using retrobulbar modified Van Lint lid block using 50:50 mixture of 4% lidocaine and 0.75% bupivacaine. The patient was prepped and draped in usual sterile manner for ophthalmic surgery on left eye. Lid speculum was placed in the left eye. A 25-gauge trocar was placed in the conjunctiva and sclera superotemporally, inferotemporally, and supranasally. Infusion was placed inferotemporally. Light pipe and vitreous cutter were inserted into the eye. Core vitrectomy was performed. A dense vitreous hemorrhage was cleared from the eye revealing an area of proliferation and membrane all the nerve and inferiorly, this was elevated using end-gripping forceps and vitreous cutter and trimmed away from the eye without complication. Panretinal photocoagulation was placed in all non-macular areas of the retina. Trocars were removed. The eye was noted to retain pressure well. Retrobulbar Kenalog and subconjunctival Ancef were placed. Antibiotic ointment was placed. The eye was patched and shielded. The patient was taken to postop recovery in good condition, having suffered no immediate perioperative complications. The patient was instructed to keep patch shield on. Avoid lifting or bending. Followup appointment with Dr. Workman. Job ID: [id number]
== END 2020-11-17 09:50 | disposition home or self-care (01) ==
LOC: SDC 06:33
PROVIDERS: ATTEND Ophthalmology Retina Specialist
PROC: 08T53ZZ Resection of Left Vitreous, Percutaneous Approach (ICD-10-PCS; principal; 2020-11-17)
PROC: 08NF3ZZ Release Left Retina, Percutaneous Approach (ICD-10-PCS; principal; 2020-11-17)
DX: H35.372 Puckering of macula, left eye (principal); H43.12 Vitreous hemorrhage, left eye; E11.22 Type 2 diabetes mellitus with diabetic chronic kidney disease; N18.9 Chronic kidney disease, unspecified; Z79.899 Other long term (current) drug therapy; Z88.2 Allergy status to sulfonamides; Z99.2 Dependence on renal dialysis
CPT/HCPCS: J0171; J0690; J2001; J2250; J2704; J3010; J3301; J3490